=== PATIENT | female | born 1940 | race Caucasian/White ===

== ENCOUNTER → 2016-06-11 | Outpatient (CLI) | payer MEDICARE, BC, OTHER ==
--- NOTE | 2016-06-11 21:41 | CONS ---
DATE OF CONSULTATION: 06/11/2016 CONSULTATION/NEW PATIENT EVALUATION HISTORY OF PRESENT ILLNESS/SLEEP-WAKE EVALUATION: 76-year-old lady who has been evaluated in the sleep center for possible obstructive sleep apnea-hypopnea syndrome. SLEEP SCHEDULE: Patient usual sleep schedule is from 8:30 p.m. to 10:30 a.m. FALLING ASLEEP: Sometimes she has problem with falling asleep, has TV set in bedroom. DURING SLEEP: Sleeps in bed. Sometimes wakes up with nocturia. DURING THE DAY/WAKE STATE: No complaints of excessive daytime sleepiness. [place] Past medical history positive for respiratory failure, bipolar disorder, Alzheimer's disease, kidney problem, CHF, polyarthritis. History of cerebral infarction. MEDICATIONS: 1. Lasix. 2. Lexapro. 3. Multivitamins. 4. Mylanta. 5. [place]. 6. Prilosec. 7. Amlodipine. 8. Aspirin. 9. Atrovent inhaler. 10. Budesonide. 11. ( ). 12. ( ). 13. Colace. 14. Coumadin. 15. Duoneb. 16. Eucerine cream. 17. Patient is on 24 hours oxygen supplement for respiratory failure. PAST SURGICAL HISTORY: Tonsillectomy, D&C. SOCIAL HISTORY: Negative for smoking or using alcohol. FAMILY HISTORY: The patient did not indicate. REVIEW OF SYSTEMS: Swelling of the legs, difficulties to walk. No fevers. No double vision. No recent chest pain. No shortness of breath. No abdominal pain. No bleeding episodes. No blood in urine. No seizure episodes. PHYSICAL EXAMINATION: GENERAL: During physical exam, a pleasant 76-year-old lady on wheelchair without any distress. VITAL SIGNS: BP 132/86, HR 85, RR 16, estimated weight 252.2 pounds, estimated height is 5 feet. Neck is 15-3/4 inches in circumference. Temperature 96.5. Oxygen saturation at room air 93%. HEENT: PERRLA, EOMI evaluation of oropharynx showed, small oropharyngeal air space, very wide nasal pillow, short distance between soft palate and pharyngeal wall. NECK: Supple. No JVD. Thyroid is not palpable. LUNGS: Clear to percussion and to auscultation. Good air exchange. No wheezing or rhonchi. HEART: S1, S2 regular. No murmurs, gallops or rubs. ABDOMEN: Obese. Soft and nontender. Bowel sounds are present. No organomegaly appreciated. EXTREMITIES: 1+ to 2+ bilateral ankle edema, arms bilateral ulnar deformation of the arms. STAVE JOINTER: Patient is on wheelchair, no clear focal deficits observed. IMPRESSION: 1. Snoring, small oropharyngeal air space awakenings from sleep, obstructive sleep apnea/hypopnea syndrome. 2. Obesity. 3. History of asthma. 4. History of respiratory failure on oxygen supplement 2 liters per minute. 5. Swelling of the legs, congestive heart failure. 6. Hypertension. 7. Bipolar. 8. History of cerebral infarction due to unspecified occlusion of cerebral artery. 9. Ulnar deformity of the arms possible rheumatoid arthritis. 10. History of Alzheimer's dementia. 11. History of kidney problems. PLAN: 1. Polysomnography for evaluation of patient's breathing during sleep. 2. CPAP/BiPAP titration if sleep study confirms obstructive sleep apnea-hypopnea syndrome. 3. Preferable position during sleep on the side. 4. No driving if patient feels any sleepiness. Patient is aware of civil and criminal liability for unsafe driving. 5. I will see patient for follow-up visit to explain results of the testing and following plan. Sincerely, Jason Nayak MD, PhD, FAASM. Diplomat of [place] [employer], Sleep Medicine Board by [place] [employer] [place] [employer] [facility] [place]
== END | disposition home or self-care (01) ==
LOC: SLEEP 14:01
PROVIDERS: ATTEND Internal Medicine
DX: G47.33 Obstructive sleep apnea (adult) (pediatric) (principal); E66.9 Obesity, unspecified; J45.909 Unspecified asthma, uncomplicated; J96.90 Respiratory failure, unspecified, unspecified whether with hypoxia or hypercapnia; Z99.81 Dependence on supplemental oxygen; I50.9 Heart failure, unspecified; I10 Essential (primary) hypertension; F31.9 Bipolar disorder, unspecified; Z86.73 Personal history of transient ischemic attack (TIA), and cerebral infarction without residual deficits; M21.932 Unspecified acquired deformity of left forearm; M21.931 Unspecified acquired deformity of right forearm; G30.9 Alzheimer's disease, unspecified; F02.80 Dementia in other diseases classified elsewhere, unspecified severity, without behavioral disturbance, psychotic disturbance, mood disturbance, and anxiety; Z79.01 Long term (current) use of anticoagulants; Z79.899 Other long term (current) drug therapy
CPT/HCPCS: 99211

== ENCOUNTER 2016-07-10 13:20 | Inpatient (IN) | payer MEDICARE, BC, OTHER ==
[2016-07-10] MEDS ORDERED: methylPREDNISolone SOD SUCCI 125 MG/2 ML VIAL IV STA (13:56)
[2016-07-10] MEDS ORDERED: IPRATROPIUM-ALBUTEROL 3 ML NEB INHALATION STA (13:56)
--- NOTE | 2016-07-10 14:01 | ED ---
General Adult HPI - General Chief complaint: Shortness of Breath Stated complaint: CÉSAR Time Seen by Provider: 07/10/16 13:22 Source: patient, EMS, RN notes reviewed Mode of arrival: EMS Limitations: altered mental status, physical limitation - History of Present Illness Initial comments: Patient is a pleasant 76-year-old female presenting to the emergency department with difficulty in breathing. Patient is a poor historian and offers very little information. EMS reports patient is DO NOT RESUSCITATE. Patient poorly has a history of COPD and CHF. Patient admits to dyspnea. Patient has no other complaints. - Related Data Home Medications Medication Instructions Recorded Confirmed Acetaminophen Tab [Tylenol] 650 mg PO Q8H PRN 06/15/15 07/10/16 Artificial Tears-Hypromellose 2 drops BOTH EYES Q6H 06/15/15 07/10/16 [Artificial Tear Drops] Docusate [Colace] 100 mg PO DAILY 06/15/15 07/10/16 Fluticasone Nasal [place] [Flonase 2 spr EA NOSTRIL HS 06/15/15 07/10/16 Nasal [place]] Lactulose 20 gm PO DAILY PRN 06/15/15 07/10/16 Magnesium Hydroxide [Milk of 2,400 mg PO DAILY PRN 06/15/15 07/10/16 Magnesia] Montelukast [Singulair] 10 mg PO DAILY 06/15/15 07/10/16 Multivitamins, Thera [Multivitamin 1 tab PO HS 06/15/15 07/10/16 (formulary)] Omeprazole [PriLOSEC] 20 mg PO DAILY 06/15/15 07/10/16 Saline Mist 0.65% Nose [place] 2 spray EA NOSTRIL BID 06/15/15 07/10/16 Aspirin 81 mg PO HS 07/10/16 07/10/16 Cetirizine HCl [Zyrtec] 10 mg PO DAILY 07/10/16 07/10/16 Colloidal Oatmeal [Eucerin Eczema 1 applic TOPICAL HS 07/10/16 07/10/16 Relief] Furosemide [Lasix] 40 mg PO DAILY 07/10/16 07/10/16 Amaya-Tussin Dm 10 ml PO Q6H PRN 07/10/16 07/10/16 Ipratropium [place] 0.06%Nasal 2 spray EA NOSTRIL BID@0700,1600 07/10/16 [Atrovent Nasal 0.06%] Nasal Airflow Strips [Breathe 1 strip TOPICAL DAILY PRN 07/10/16 07/10/16 Right] QUEtiapine [SEROquel] 12.5 mg PO HS 07/10/16 07/10/16 Warfarin Sodium 8 mg PO HS 07/10/16 07/10/16 Previous Rx's Medication Instructions Recorded Budesonide [Pulmicort] 0.5 mg INHALATION RT-BID nebu 06/27/15 Cholestyramine (with Sugar) 4 gm PO BID packet 06/27/15 [Questran Packet] Escitalopram [Lexapro] 20 mg PO DAILY tab 06/27/15 Ipratropium-Albuterol Nebulize 3 ml INHALATION Q4H PRN #0 06/27/15 [Duoneb 0.5 mg-3 mg/3 ml Soln] ampul.neb Ipratropium-Albuterol Nebulize 3 ml INHALATION RT-QID ampul.neb 06/27/15 [Duoneb 0.5 mg-3 mg/3 ml Soln] HYDROcodone/APAP 5-325MG [Una 1 tab PO Q6HR PRN #20 tab 07/20/15 5-325] amLODIPine [Norvasc] 5 mg PO DAILY tab 07/20/15 Allergies Allergy/AdvReac Type Severity Reaction Status Date / Time guaifenesin [From Entex LA] Allergy Unknown Verified 07/10/16 13:35 phenylephrine HCl Allergy Unknown Verified 07/10/16 13:35 [From Entex LA] phenylpropanolamine HCl Allergy Unknown Verified 07/10/16 13:35 [From Entex LA] pseudoephedrine Allergy Unknown Verified 07/10/16 13:35 sertraline HCl [From Zoloft] Allergy Unknown Verified 07/10/16 13:35 sulfamethoxazole Allergy Unknown Verified 07/10/16 13:35 [From Bactrim] trimethoprim [From Bactrim] Allergy Unknown Verified 07/10/16 13:35 Review of Systems ROS Statement: Those systems with pertinent positive or pertinent negative responses have been documented in the HPI. ROS Other: All systems not noted in ROS Statement are negative. Limitations: ROS unobtainable due to patients medical condition Respiratory: Reports: dyspnea Past Medical History Past Medical History: Asthma, Coronary Artery Disease (CAD), Heart Failure, CVA/ TIA, Dementia, Neurologic Disorder Additional Past Medical History / Comment(s): 4L home O2, alzheimers History of Any Multi-Drug Resistant Organisms: MRSA Date of last positivie culture/infection: 06/17/2015 MDRO Source:: sputum Past Surgical History: Appendectomy, Cholecystectomy, Hysterectomy Past Anesthesia/Blood Transfusion Reactions: No Reported Reaction Past Psychological History: Bipolar, Depression Additional Psychological History / Comment(s): Resides at extended care. Lifelong nonsmoker. Denies alcohol use. No travel history. No experience. Smoking Status: Never smoker Past Alcohol Use History: None Reported Past Drug Use History: None Reported General Exam Limitations: altered mental status, physical limitation General appearance: alert, in distress Head exam: Present: atraumatic Eye exam: Present: normal appearance, PERRL ENT exam: Present: normal oropharynx Neck exam: Present: normal inspection Respiratory exam: Present: respiratory distress, wheezes, decreased breath sounds Cardiovascular Exam: Present: regular rate, normal rhythm GI/Abdominal exam: Present: soft. Absent: tenderness Extremities exam: Present: normal inspection Neurological exam: Present: alert Psychiatric exam: Present: normal affect, normal mood Skin exam: Absent: rash Course Vital Signs 07/10/16 07/10/16 07/10/16 13:26 13:47 14:09 Temperature 98.0 F Pulse Rate 102 H 98 98 Respiratory 26 H 26 H 26 H Rate Blood Pressure 114/77 121/63 132/60 O2 Sat by Pulse 76 L 76 L 76 L Oximetry 07/10/16 07/10/16 07/10/16 14:37 14:38 14:50 Temperature Pulse Rate 94 94 93 Respiratory 24 Rate Blood Pressure 128/60 O2 Sat by Pulse 78 L Oximetry 07/10/16 07/10/16 15:00 15:45 Temperature Pulse Rate 92 93 Respiratory 24 22 Rate Blood Pressure 122/58 138/68 O2 Sat by Pulse 94 L 81 L Oximetry - Reevaluation(s) Reevaluation #1: 07/10/16 14:00 Patient does have DO NOT RESUSCITATE paperwork with multiple signatures including her physician Dr. Valdes EKG Findings - EKG Comments: EKG Findings:: Normal sinus rhythm 100. MN 190. QRS 160. QT 386. QTc 497. Left axis. Right bundle branch block. Lateral T wave inversion. Medical Decision Making - Medical Decision Making Patient reexamined and somewhat improved since presentation. Patient updated. Case discussed with Dr. Billings, who will admit for Dr. Valdes. Attempt will be made with BiPAP. - Lab Data Result diagrams: 07/10/16 15:17 07/10/16 15:17 Lab Results 07/10/16 07/10/16 07/10/16 Range/Units 15:17 15:17 15:17 WBC 9.2 (3.8-10.6) k/uL RBC 4.85 (3.80-5.40) m/uL Hgb 13.6 (11.4-16.0) gm/dL Hct 45.0 (34.0-46.0) % MCV 92.7 (80.0-100.0) fL MCH 28.0 (25.0-35.0) pg MCHC 30.3 L (31.0-37.0) g/dL RDW 14.9 (11.5-15.5) % Plt Count 90 L (150-450) k/uL Neutrophils % 89 % Lymphocytes % 6 % Monocytes % 3 % Eosinophils % 0 % Basophils % 0 % Neutrophils # 8.2 H (1.3-7.7) k/uL Lymphocytes # 0.6 L (1.0-4.8) k/uL Monocytes # 0.3 (0-1.0) k/uL Eosinophils # 0.0 (0-0.7) k/uL Basophils # 0.0 (0-0.2) k/uL Hypochromasia Marked PT 19.8 H (9.0-12.0) sec INR 2.1 (<1.1) APTT 25.1 (22.0-30.0) sec Sodium 141 (137-145) mmol/L Potassium 4.7 (3.5-5.1) mmol/L Chloride 101 (98-107) mmol/L Carbon Dioxide 28 (22-30) mmol/L Anion Gap 12 mmol/L BUN 22 H (7-17) mg/dL Creatinine 0.60 (0.52-1.04) mg/dL Est GFR (MDRD) Af Amer >60 (>60 ml/min/1.73 sqM) Est GFR (MDRD) Non-Af >60 (>60 ml/min/1.73 sqM) Glucose 117 H (74-99) mg/dL Calcium 8.5 (8.4-10.2) mg/dL Total Bilirubin 0.8 (0.2-1.3) mg/dL AST 60 H (14-36) U/L ALT 31 (9-52) U/L Alkaline Phosphatase 39 (38-126) U/L NT-Pro-B Natriuret Pep pg/mL Total Protein 7.1 (6.3-8.2) g/dL Albumin 3.9 (3.5-5.0) g/dL 07/10/16 Range/Units 15:17 WBC (3.8-10.6) k/uL RBC (3.80-5.40) m/uL Hgb (11.4-16.0) gm/dL Hct (34.0-46.0) % MCV (80.0-100.0) fL MCH (25.0-35.0) pg MCHC (31.0-37.0) g/dL RDW (11.5-15.5) % Plt Count (150-450) k/uL Neutrophils % % Lymphocytes % % Monocytes % % Eosinophils % % Basophils % % Neutrophils # (1.3-7.7) k/uL Lymphocytes # (1.0-4.8) k/uL Monocytes # (0-1.0) k/uL Eosinophils # (0-0.7) k/uL Basophils # (0-0.2) k/uL Hypochromasia PT (9.0-12.0) sec INR (<1.1) APTT (22.0-30.0) sec Sodium (137-145) mmol/L Potassium (3.5-5.1) mmol/L Chloride (98-107) mmol/L Carbon Dioxide (22-30) mmol/L Anion Gap mmol/L BUN (7-17) mg/dL Creatinine (0.52-1.04) mg/dL Est GFR (MDRD) Af Amer (>60 ml/min/1.73 sqM) Est GFR (MDRD) Non-Af (>60 ml/min/1.73 sqM) Glucose (74-99) mg/dL Calcium (8.4-10.2) mg/dL Total Bilirubin (0.2-1.3) mg/dL AST (14-36) U/L ALT (9-52) U/L Alkaline Phosphatase (38-126) U/L NT-Pro-B Natriuret Pep 77983 pg/mL Total Protein (6.3-8.2) g/dL Albumin (3.5-5.0) g/dL - Radiology Data Radiology results: image reviewed (Chest x-ray shows cardiomegaly and large left effusion. By basilar atelectasis versus consolidation.) Critical Care Time Critical Care Time: Yes Total Critical Care Time: 34 Disposition Clinical Impression: Congestive heart failure, Acute respiratory failure, Acute exacerbation of chronic obstructive airways disease Disposition: ADMITTED IP TO THIS HOSP Condition: Serious
--- NOTE | 2016-07-10 14:39 | XR ---
EXAMINATION TYPE: XR chest 1V portable DATE OF EXAM: 07/10/2016 2:07 PM Comparison: 07/20/2015 Clinical History: 76-year-old female with dyspnea Findings: Left heart margin obscured by adjacent pleural-parenchymal disease. There is now a moderate to large left pleural effusion with adjacent opacity. Focal opacity medial right base is also present. Impression: Moderate to large left pleural effusion. Prominent bibasilar areas of atelectasis and/or consolidatio n. Follow-up after treatment to ensure clearance. Suspect underlying pulmonary artery hypertension.
[2016-07-10 15:29] LABS: Basophils % (A) 0 %; CH 27.6; CHCM 29.9; Eosinophils % (A) 0 %; HDW 2.62; HGB 13.6 gm/dL (11.4-16.0); Hypochromasia Marked; Luc % (Auto) 1; Lymphocytes # (A) 0.6 k/uL (1.0-4.8); Lymphocytes % (A) 6 %; MCHC 30.3 g/dL (31.0-37.0); MCV 92.7 fL (80.0-100.0); Mean Platelet Volume 8.4; Monocytes # (A) 0.3 k/uL (0-1.0); Monocytes % (A) 3 %; Neutrophils # (A) 8.2 k/uL (1.3-7.7); Neutrophils % (A) 89 %; RBC 4.85 m/uL (3.80-5.40); RDW 14.9 % (11.5-15.5); WBC 9.2 k/uL (3.8-10.6); WBC (Perox) 8.56
[2016-07-10 15:37] LABS: INR 2.1 (<1.1); Partial Thromboplastin Time 25.1 sec (22.0-30.0); Prothrombin Time 19.8 sec (9.0-12.0)
[2016-07-10 15:40] LABS: ALT 31 U/L (9-52); AST 60 U/L (14-36); Alkaline Phosphatase 39 U/L (38-126); Anion Gap 12 mmol/L; Blood Urea Nitrogen 22 mg/dL (7-17); Calcium 8.5 mg/dL (8.4-10.2); Carbon Dioxide 28 mmol/L (22-30); Chloride 101 mmol/L (98-107); Glucose 117 mg/dL (74-99); Non-African American GFR(MDRD) >60 (>60 ml/min/1.73 sqM); Potassium 4.7 mmol/L (3.5-5.1); Sodium 141 mmol/L (137-145); Total Bilirubin 0.8 mg/dL (0.2-1.3); Total Protein 7.1 g/dL (6.3-8.2)
[2016-07-10] MEDS ORDERED: ASPIRIN 325 MG TAB PO STA (15:57)
[2016-07-10] MEDS ORDERED: IPRATROPIUM-ALBUTEROL 3 ML NEB INHALATION PRN (16:03)
[2016-07-10 16:04] LABS: Creatine Kinase MB 2.7 ng/mL (0.0-2.4)
[2016-07-10 16:37] LABS: Troponin I 0.352 ng/mL (0.000-0.034)
[2016-07-10] MEDS: FUROSEMIDE 10 MG/ML 4 ML VIAL IV SCH ×2 (16:47→23:27)
[2016-07-10] MEDS ORDERED: FUROSEMIDE 10 MG/ML 4 ML VIAL IV SCH ×2 (17:00)
[2016-07-10] MEDS: IPRATROPIUM-ALBUTEROL 3 ML NEB INHALATION SCH (19:30)
[2016-07-10] MEDS ORDERED: ALPRAZolam 0.25 MG TAB PO PRN (19:56)
[2016-07-10] MEDS ORDERED: LACTULOSE 20 GM/30 ML CUP PO PRN (19:57)
[2016-07-10] MEDS ORDERED: ACETAMINOPHEN TAB 325 MG TAB PO PRN (19:57)
[2016-07-10] MEDS ORDERED: HYDROcodone/APAP 5-325MG 1 EACH TAB PO PRN (19:57)
[2016-07-10] MEDS ORDERED: MAGNESIUM HYDROXIDE 2,400 MG/10 ML CUP PO PRN (19:57)
[2016-07-10] MEDS: NITROGLYCERIN OINT 1 INCH/GM PACKET TOPICAL SCH ×2 (20:19→23:24)
[2016-07-10] MEDS: LEVOFLOXACIN 500MG-D5W PMX 500 MG in DEXTROSE/WATER 1 100ML.BAG IVPB SCH (20:24)
[2016-07-10 20:28] LABS: Glucose,Whole Blood 128 mg/dL (75-99)
[2016-07-10] MEDS ORDERED: WARFARIN 2 MG TAB PO SCH (21:00)
[2016-07-10] MEDS: INSULIN LISPRO (humaLOG) 300 UNIT/3 ML VIAL SQ SCH (21:34)
[2016-07-10] MEDS: ARTIFICIAL TEARS-HYPROMELLOSE DROPS 15 ML BTL BOTH EYES SCH (21:39)
[2016-07-10] MEDS: MULTIVITAMINS, THERA 1 EACH TAB PO SCH (21:39)
[2016-07-10] MEDS: FLUTICASONE 50MCG/SPRAY NASAL 16GM EA NOSTRIL SCH (21:39)
[2016-07-10] MEDS: SODIUM CHLORIDE 0.65% NASAL SPRAY 44 ML BTL NASAL SCH (21:39)
[2016-07-10] MEDS: QUEtiapine 25 MG TAB PO SCH (21:40)
[2016-07-10] MEDS: methylPREDNISolone SOD SUCCI 125 MG/2 ML VIAL IV SCH (23:28)
[2016-07-11] MEDS: ARTIFICIAL TEARS-HYPROMELLOSE DROPS 15 ML BTL BOTH EYES SCH ×4 (02:48→21:12)
[2016-07-11 05:52] LABS: Glucose,Whole Blood 125 mg/dL (75-99)
[2016-07-11] MEDS: INSULIN LISPRO (humaLOG) 300 UNIT/3 ML VIAL SQ SCH ×4 (06:03→22:43)
[2016-07-11] MEDS: methylPREDNISolone SOD SUCCI 125 MG/2 ML VIAL IV SCH ×4 (06:04→23:44)
[2016-07-11 06:29] LABS: Basophils % (A) 0 %; CH 27.3; CHCM 30.3; Eosinophils % (A) 0 %; HCT 42.1 % (34.0-46.0); HGB 13.3 gm/dL (11.4-16.0); Hypochromasia Moderate; Luc # (Auto) 0.07; Luc % (Auto) 1; Lymphocytes # (A) 0.5 k/uL (1.0-4.8); Lymphocytes % (A) 6 %; MCH 28.7 pg (25.0-35.0); MCHC 31.6 g/dL (31.0-37.0); MCV 90.6 fL (80.0-100.0); Mean Platelet Volume 7.3; Monocytes # (A) 0.3 k/uL (0-1.0); Monocytes % (A) 3 %; Neutrophils # (A) 7.9 k/uL (1.3-7.7); Neutrophils % (A) 90 %; RBC 4.65 m/uL (3.80-5.40); RDW 14.4 % (11.5-15.5); WBC 8.8 k/uL (3.8-10.6)
[2016-07-11 06:37] LABS: INR 3.1 (<1.1); Prothrombin Time 30.5 sec (9.0-12.0)
[2016-07-11 06:43] LABS: Anion Gap 6 mmol/L; Calcium 8.2 mg/dL (8.4-10.2); Carbon Dioxide 33 mmol/L (22-30); Chloride 101 mmol/L (98-107); Glucose 128 mg/dL (74-99); Non-African American GFR(MDRD) >60 (>60 ml/min/1.73 sqM); Sodium 140 mmol/L (137-145)
[2016-07-11 06:57] LABS: Blood Urea Nitrogen 22 mg/dL (7-17); Potassium 4.3 mmol/L (3.5-5.1)
--- NOTE | 2016-07-11 08:14 | HP ---
DATE OF ADMISSION: 07/10/2016 CHIEF COMPLAINT: Shortness of breath. HISTORY OF PRESENT ILLNESS: This 76-year-old woman with past medical history of asthma, CAD, history of congestive heart failure, history of CVA, dementia, history of ovarian cancer, history of chronic respiratory failure, history of methicillin-resistant Staphylococcus aureus, adenoidectomy, history of depression, being followed by Dr. Valdes in the outpatient setting was recently admitted to [facility]. The patient apparently had significant shortness of breath and some change in mental status in the ECF and oxygen about 50%. The patient was taken to [facility] and admitted for further evaluation and treatment. Chest x-ray showed possibly combination of pneumonia versus congestive heart failure and admitted for further evaluation and treatment. The patient was severely hypoxic. The patient had a BiPAP at 25/10 at this time. A pulmonary consultation with Dr. Alejo is under way at this time. Cardiology also consulted. Patient is unable to give a coherent history because of change in mental status. Most of the history taken from my discussion with ER physician and as well as staff and as well as review of the chart. Most recent ejection fraction was 50 to 55%. No history of trauma. PAST MEDICAL HISTORY: History of congestive heart failure, history of asthma, history of CVA, TIA, history of dementia, history of chronic respiratory failure and depression. Medications prior to admission include: 1. Lexapro 20 mg p.o. daily. 2. Artificial tears, two drops q.6h. p.r.n. 3. Magnesium oxide 2.4 grams p.o. daily p.r.n. 4. [place] 5 mg q6h p.r.n. 5. Tylenol 650 q.6 p.r.n. 6. Lactulose 20 mg p.o. daily p.r.n. 8. DuoNeb q.i.d. and q.4 p.r.n. 9. Saline mist. 10. Questran 4 grams p.o. b.i.d. 11. Pulmicort 0.5 b.i.d. 12. Singulair 10 mg daily. 13. Seroquel 2.5 mg q6h. 14. Prilosec 20 mg daily. 15. Multivitamin 1 p.o. daily. 16. Lasix 40 mg p.o. daily. 17. Flonase 2 sprays q.h.s. 19. Coumadin 8 mg p.o. q.h.s. 20. Colace 100 mg p.o. daily. 22. Norvasc 5 mg p.o. daily. 23. Aspirin 81 mg q.h.s. ALLERGIES ARE: GUAIFENESIN, ENTEX LA, ZOLOFT AND BACTRIM. FAMILY HISTORY, SOCIAL HISTORY AND REVIEW OF SYSTEMS could not be taken because of change in mental status. Per chart, no history of smoking. PHYSICAL EXAMINATION: Patient is stuporous, on BiPAP. BIPAP settings are noted. Pulse is 92, blood pressure 126/70, respiratory rate 22, temperature 97.9. Pulse ox 98% on BiPAP. On admission to 76% on nonrebreather 15 liters. HEENT: Conjunctivae normal. Oral mucosa moist. NECK: Obese. CARDIOVASCULAR: S1, S2 muffled. RESPIRATORY: Breath sounds diminished at the bases. Bilateral scattered rhonchi and crackles. Breath sounds diminished at the bases. ABDOMEN: Soft, obese, nontender. LEGS: No edema. No swelling. Nervous system: Higher function as mentioned earlier. Otherwise, careful exam could not be conducted. SKIN: No ulcer, rash or bleeding. LYMPHATICS: No lymph nodes palpable in the neck, axillae or groin. JOINTS: No active deforming arthropathy. LABS: CBC, platelets 90. INR 2.1 and CK-MB is 2.7. Troponin 0.352, NT-proBNP 29,500. Chest x-ray personally reviewed by me showed congestive heart failure and possible pneumonia. EKG shows normal sinus rhythm as well as right bundle branch block and left axis deviation. ASSESSMENT: 1. Congestive heart failure, acute exacerbation, with acute on chronic diastolic dysfunction, ejection 50 to 55% with acute hypoxic respiratory failure on BiPAP. 2. Rule out pneumonia. 3. Thrombocytopenia. 4. Troponin 0.352, indeterminate. 5. Morbid obesity, body mass index of 48.3. 6. History of asthma. 7. History of coronary artery disease. 8. History of congestive heart failure. 9. History of cerebrovascular accident, transient ischemic attack. 10. History of dementia. 11. History of chronic respiratory failure on home O2 4 liters. 12. History of ovarian cancer. 13. History of Methicillin-resistant Staph aureus. 14. History of appendectomy, cholecystectomy. 15. History of depression, not otherwise specified. 16. History of pulmonary embolism. 17. 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 18. History of bipolar depression not otherwise specified. 19. NO CODE, NO CPR, NO VENTILATOR. RECOMMENDATIONS AND DISCUSSION: In this 76 -year-old woman who presented with multiple complex medical issues, we will monitor the patient closely, continue the current medications, continue symptomatic treatment. Intravenous status will be initiated. Monitor fluid and electrolytes balance closely. Empiric antibiotics, bronchodilators, also will be added along with steroids. Prognosis guarded because of multiple complex medical issues. Home medications will be continued and we will consult Dr. Alejo and as well as cardiology team. Please the patient is NO CODE, NO CPR, AND NO VENT. Once again, the prognosis is extremely guarded. Currently the sats are holding on but we will continue to monitor. Once again, the prognosis is guarded. We will monitor closely. See orders for details. MTDD
--- NOTE | 2016-07-11 09:19 | P.CRDCN ---
History of Present Illness Consult date: 07/11/16 Reason for Consult (text): CHF Chief complaint: Dyspnea History of present illness: This is a 76-year-old female patient who is currently on a BiPAP, has a history of asthma, CAD, systolic heart failure, CVA, Alzheimer's dementia, on home O2, history of being a smoker, and June 2015 and is on Coumadin. She sides and in extended care facility. Due to patient's Alzheimer's and being on a BiPAP limited review of systems was obtained and HPI was gathered from the medical record. According to the records, patient had been experiencing increased shortness of breath for a couple days and a chest x-ray was done that showed mild CHF with small pleural effusions. Apparently yesterday, patient developed severe difficulty breathing, was tachypneic with labored respirations and EMS was called. Patient was found to have peripheral cyanosis and a low oxygen saturation. The patient was placed on a BiPAP and started on Lasix 40 mg IV push every 8 hours. According to the weights documented in the chart the patient is found to have kilograms suggested a period patient's BNP was 29,500, BUN 22, creatinine 0.5 and troponin was elevated at 0.352. The patient is able to verbalize that she is breathing better this morning. INR this morning was 3.1 patient is usually on Coumadin 8 mg by mouth daily at bedtime. Past Medical History Past Medical History: Asthma, Coronary Artery Disease (CAD), Cancer, Heart Failure, CVA/TIA, Dementia, Neurologic Disorder Additional Past Medical History / Comment(s): 4L home O2, ovarian ca. History of Any Multi-Drug Resistant Organisms: MRSA Date of last positivie culture/infection: 06/17/2015 MDRO Source:: sputum Past Surgical History: Appendectomy, Cholecystectomy, Hysterectomy Past Anesthesia/Blood Transfusion Reactions: No Reported Reaction Past Psychological History: No Psychological Hx Reported, Depression Additional Psychological History / Comment(s): Resides at extended care. Lifelong nonsmoker. Denies alcohol use. No travel history. No experience. Smoking Status: Never smoker Past Alcohol Use History: None Reported Past Drug Use History: None Reported - Past Family History Mother Family Medical History: Coronary Artery Disease (CAD) Father Family Medical History: Coronary Artery Disease (CAD) Medications and Allergies Home Medications Medication Instructions Recorded Confirmed Type Acetaminophen Tab [Tylenol] 650 mg PO Q8H PRN 06/15/15 07/10/16 History Artificial Tears-Hypromellose 2 drops BOTH EYES Q6H 06/15/15 07/10/16 History [Artificial Tear Drops] Docusate [Colace] 100 mg PO DAILY 06/15/15 07/10/16 History Fluticasone Nasal [place] [Flonase 2 spr EA NOSTRIL HS 06/15/15 07/10/16 History Nasal [place]] Lactulose 20 gm PO DAILY PRN 06/15/15 07/10/16 History Magnesium Hydroxide [Milk of 2,400 mg PO DAILY PRN 06/15/15 07/10/16 History Magnesia] Montelukast [Singulair] 10 mg PO DAILY 06/15/15 07/10/16 History Multivitamins, Thera [Multivitamin 1 tab PO HS 06/15/15 07/10/16 History (formulary)] Omeprazole [PriLOSEC] 20 mg PO DAILY 06/15/15 07/10/16 History Saline Mist 0.65% Nose [place] 2 spray EA NOSTRIL BID 06/15/15 07/10/16 History Aspirin 81 mg PO HS 07/10/16 07/10/16 History Cetirizine HCl [Zyrtec] 10 mg PO DAILY 07/10/16 07/10/16 History Colloidal Oatmeal [Eucerin Eczema 1 applic TOPICAL HS 07/10/16 07/10/16 History Relief] Furosemide [Lasix] 40 mg PO DAILY 07/10/16 07/10/16 History Amaya-Tussin Dm 10 ml PO Q6H PRN 07/10/16 07/10/16 History Ipratropium [place] 0.06%Nasal 2 spray EA NOSTRIL BID@0700,1600 07/10/16 History [Atrovent Nasal 0.06%] Nasal Airflow Strips [Breathe 1 strip TOPICAL DAILY PRN 07/10/16 07/10/16 History Right] QUEtiapine [SEROquel] 12.5 mg PO HS 07/10/16 07/10/16 History Warfarin Sodium 8 mg PO HS 07/10/16 07/10/16 History Allergies Allergy/AdvReac Type Severity Reaction Status Date / Time guaifenesin [From Entex [place]] Allergy Unknown Verified 07/10/16 13:35 phenylephrine HCl Allergy Unknown Verified 07/10/16 13:35 [From Entex LA] phenylpropanolamine HCl Allergy Unknown Verified 07/10/16 13:35 [From Entex LA] pseudoephedrine Allergy Unknown Verified 07/10/16 13:35 sertraline HCl [From Zoloft] Allergy Unknown Verified 07/10/16 13:35 sulfamethoxazole Allergy Unknown Verified 07/10/16 13:35 [From Bactrim] trimethoprim [From Bactrim] Allergy Unknown Verified 07/10/16 13:35 Physical Exam Vitals: Vital Signs Temp Pulse Pulse Resp BP BP Pulse Ox 07/11/16 03:15 97 F L 80 17 103/59 95 07/11/16 00:00 97 F L 79 18 94/55 93 L 07/10/16 20:02 99 F 86 20 95/54 07/10/16 19:45 94 07/10/16 19:30 94 07/10/16 18:18 29 H 07/10/16 17:14 92 22 122/67 92 L 07/10/16 16:50 97.9 F 90 22 137/75 93 L 07/10/16 16:46 96.9 F L 89 29 H 108/68 07/10/16 16:37 93 L 07/10/16 16:28 90 20 146/74 92 L Intake and Output 07/10/16 07/11/16 07/11/16 22:59 06:59 14:59 Intake Total 10 400 Output Total 1100 Balance 10 -700 Intake: IV 10 Iv flush 10 Oral 0 400 Output: Urine 1100 Other: Voiding Method Incontinent Incontinent # Voids 2 Weight 116.02 kg 113.5 kg PHYSICAL EXAMINATION: HEENT: Head is atraumatic, normocephalic. Pupils equal, round. Neck is supple. There is elevated jugular venous pressure. HEART EXAMINATION: Heart sounds regular, S1 and S2 normal. No murmur or gallop heard. CHEST EXAMINATION: Lungs michael coarse lung sounds with crackles bilaterally and diminished air entry to the bilateral lower lobes. No chest wall tenderness is noted on palpation or with deep breathing. ABDOMEN: Soft, obese, nontender. Bowel sounds are heard. No organomegaly noted. EXTREMITIES: 2+ peripheral pulses with no evidence of peripheral edema and no calf tenderness noted. NEUROLOGIC patient is drowsy, responsive to verbal and tactile stimuli, confused. . Results 07/11/16 06:17 07/11/16 06:17 Coagulation 07/11/16 Range/Units 06:17 PT 30.5 H (9.0-12.0) sec CBC 07/11/16 Range/Units 06:17 WBC 8.8 (3.8-10.6) k/uL RBC 4.65 (3.80-5.40) m/uL Hgb 13.3 (11.4-16.0) gm/dL Hct 42.1 (34.0-46.0) % Plt Count 104 L (150-450) k/uL Comprehensive Metabolic Panel 07/11/16 Range/Units 06:17 Sodium 140 (137-145) mmol/L Potassium 4.3 (3.5-5.1) mmol/L Chloride 101 (98-107) mmol/L Carbon Dioxide 33 H (22-30) mmol/L BUN 22 H (7-17) mg/dL Creatinine 0.50 L (0.52-1.04) mg/dL Glucose 128 H (74-99) mg/dL Calcium 8.2 L (8.4-10.2) mg/dL Current Medications Generic Name Dose Route Start Last Admin Trade Name Freq PRN Reason Stop Dose Admin Acetaminophen 650 mg 07/10/16 19:57 Tylenol Tab PO Q8H PRN Mild Pain Hydrocodone Bitart/Acetaminophen 1 each 07/10/16 19:57 [place] 5-325 PO Q6HR PRN Moderate Pain Albuterol/Ipratropium 3 ml 07/10/16 20:00 07/10/16 19:30 Duoneb 0.5 Mg-3 Mg/3 Ml Soln INHALATION 3 ml RT-QID LOLITA Administration Albuterol/Ipratropium 3 ml 07/10/16 16:03 Duoneb 0.5 Mg-3 Mg/3 Ml Soln INHALATION RT-Q4H PRN Shortness Of Breath Or Wheezing Alprazolam 0.25 mg 07/10/16 19:56 Xanax PO TID PRN Anxiety Amlodipine Besylate 5 mg 07/11/16 09:00 Norvasc PO DAILY LOLITA Artificial Tears 2 drops 07/10/16 20:00 07/11/16 02:48 Artificial Tear Drops BOTH EYES Not Given Q6H LOLITA Aspirin 325 mg 07/11/16 09:00 Aspirin PO DAILY [facility] Budesonide 1 mg 07/10/16 20:00 Pulmicort INHALATION RT-BID [facility] Docusate Sodium 100 mg 07/11/16 09:00 Colace PO DAILY [facility] Escitalopram Oxalate 20 mg 07/11/16 09:00 Lexapro PO DAILY [facility] Fluticasone Propionate 2 spray 07/10/16 21:00 07/10/16 21:39 Flonase Nasal [place] EA NOSTRIL 2 spray HS [facility] Administration Formoterol Fumarate 20 mcg 07/10/16 20:00 Perforomist INHALATION RT-BID [facility] Furosemide 40 mg 07/10/16 17:00 07/10/16 23:27 Lasix IV 40 mg Q8HR [facility] Administration Levofloxacin 500 mg/ IV 100 mls @ 100 mls/hr 07/10/16 20:00 07/10/16 20:24 Solution IVPB 100 mls/hr Q24H [facility] Administration Insulin Human Lispro 0 unit 07/10/16 21:00 07/11/16 06:03 Humalog SQ Not Given ACHS [facility] Protocol Lactulose 20 gm 07/10/16 19:57 Cephulac PO DAILY PRN Constipation Magnesium Hydroxide 2,400 mg 07/10/16 19:57 Milk Of Magnesia PO DAILY PRN Constipation Methylprednisolone Sodium Succinate 60 mg 07/11/16 00:00 07/11/16 06:04 Solu-Medrol IV 60 mg Q6HR [facility] Administration Montelukast Sodium 10 mg 07/11/16 09:00 Singulair PO DAILY [facility] Multivitamins 1 each 07/10/16 21:00 07/10/16 21:39 Theragran PO 1 each HS [facility] Administration Nitroglycerin 1 inch 07/10/16 18:00 07/10/16 23:24 Nitro-Bid Oint TOPICAL Not Given QID [facility] Pantoprazole Sodium 40 mg 07/11/16 09:00 Protonix IVP DAILY [facility] Quetiapine Fumarate 12.5 mg 07/10/16 21:00 07/10/16 21:40 Seroquel PO 12.5 mg HS [facility] Administration Sodium Chloride 10 ml 07/10/16 21:00 07/10/16 21:40 Saline Flush IV 10 ml BID [facility] Administration Sodium Chloride 2 spray 07/10/16 21:00 07/10/16 21:39 [place] NASAL 2 spray BID LOLITA Administration Warfarin Sodium 8 mg 07/10/16 21:00 07/10/16 21:39 Coumadin PO 8 mg HS LOL[facility] Administration Intake and Output 07/10/16 07/11/16 07/11/16 22:59 06:59 14:59 Intake Total 10 400 Output Total 1100 Balance 10 -700 Intake: IV 10 Iv flush 10 Oral 0 400 Output: Urine 1100 Other: Voiding Method Incontinent Incontinent # Voids 2 Weight 116.02 kg 113.5 kg 07/11/16 06:17 07/11/16 06:17 EKG Interpretations (text) Sinus rhythm with right bundle branch block Assessment and Plan Plan: Assessment and plan #1 acute on chronic systolic congestive heart failure #2 moderate to large left pleural effusion #3 bibasilar atelectasis and/or consolidation per chest x-ray #4 Alzheimer's dementia #5 history of pulmonary emboli #6 elevated troponin From cardiology's perspective, elevation in troponin is likely related to oxygen supply demand mismatch. We will obtain a 2-D echo to reassess LV function. The patient is a DO NOT RESUSCITATE. We will continue medical management. Continue Lasix 40 mg IV push every 8 hours. No Coumadin today reassess INR in the morning. Further recommendations to follow. TRENCHER DRIVER note has been reviewed, I agree with a documented findings and plan of care. Patient was seen and examined.
[2016-07-11] MEDS: FORMOTEROL FUMARATE 20 MCG/2 ML NEBU INHALATION SCH ×3 (09:28→20:45)
[2016-07-11] MEDS: IPRATROPIUM-ALBUTEROL 3 ML NEB INHALATION SCH ×5 (09:28→22:35)
[2016-07-11] MEDS: BUDESONIDE 1 MG/2 ML NEBU INHALATION SCH ×2 (09:28→20:45)
[2016-07-11] MEDS: amLODIPine 5 MG TAB PO SCH (09:52)
[2016-07-11] MEDS: ASPIRIN 325 MG TAB PO SCH (09:52)
[2016-07-11] MEDS: PANTOPRAZOLE 40 MG/10 ML VIAL IVP SCH (09:52)
[2016-07-11] MEDS: DOCUSATE 100 MG CAP PO SCH (09:52)
[2016-07-11] MEDS: ESCITALOPRAM 20 MG TAB PO SCH (09:52)
[2016-07-11] MEDS: MONTELUKAST 10 MG TAB PO SCH (09:52)
[2016-07-11] MEDS: NITROGLYCERIN OINT 1 INCH/GM PACKET TOPICAL SCH ×4 (09:52→21:13)
[2016-07-11 09:54] LABS: Hemoglobin A1C 5.3 % (4.2-6.1)
[2016-07-11] MEDS: SODIUM CHLORIDE 0.65% NASAL SPRAY 44 ML BTL NASAL SCH ×2 (09:54→21:11)
[2016-07-11] MEDS: FUROSEMIDE 10 MG/ML 4 ML VIAL IV SCH ×3 (09:55→23:44)
[2016-07-11 11:41] LABS: Glucose,Whole Blood 160 mg/dL (75-99)
--- NOTE | 2016-07-11 11:42 | ECHOF ---
Referral Reason:CHF MEASUREMENTS -------- HEIGHT: 154.9 cm WEIGHT: 113.4 kg BP: 119/67 RVIDd: 3.6 cm (< 3.3) IVSd: 1.3 cm (0.6 - 1.1) LVIDd: 5.3 cm (3.9 - 5.3) LVPWd: 1.3 cm (0.6 - 1.1) IVSs: 2.0 cm LVIDs: 3.7 cm LVPWs: 1.7 cm LA Diam: 4.2 cm (2.7 - 3.8) LAESV Index (A-L): 26.41 ml/m Ao Diam: 4.0 cm (2.0 - 3.7) AV Cusp: 2.1 cm (1.5 - 2.6) MV EXCURSION: 19.783 mm (> 18.000) MV EF SLOPE: 73 mm/s (70 - 150) EPSS: 1.6 cm MV E Rickie: 1.00 m/s MV DecT: 127 ms MV A Rickie: 0.31 m/s MV E/A Ratio: 3.20 AV maxP.78 mmHg AV maxP.78 mmHg AV meanP.42 mmHg RAP: 15.00 mmHg RVSP: 51.49 mmHg FINDINGS -------- Sinus rhythm. This was a technically adequate study. The left ventricular size is normal. There is mild concentric left ventricular hypertrophy. Overall left ventricular systolic function is severely impaired with, an EF between 20 - 25 %. Basal inferior LV wall motion is hypokinetic. Basal inferoseptal LV wall motion is hypokinetic. The right ventricle is mildly enlarged. The left atrium is mildly dilated. The right atrium is normal in size. There is mild to moderate aortic valve sclerosis. There is mild aortic regurgitation. There is mild aortic stenosis present. The mitral valve leaflets are mildly thickened. Mild mitral annular calcification present. Mild mitral regurgitation is present. No regurgitation noted There is moderate pulmonary hypertension. The right ventricular systolic pressure, as measured by Doppler, is 51.49mmHg. Moderate pulmonic regurgitation. The aortic root is dilated measuring 4.0cm. Normal inferior vena cava with less than 50% inspiratory collapse consistent with estimated right atrial pressure of 15 mmHg. There is a small pericardial effusion located near the left ventricle. CONCLUSIONS -------- 1. Sinus rhythm. 2. The right atrium is normal in size. 3. There is mild to moderate aortic valve sclerosis. 4. There is mild aortic regurgitation. 5. There is mild aortic stenosis present. 6. The mitral valve leaflets are mildly thickened. 7. Mild mitral annular calcification present. 8. Mild mitral regurgitation is present. 9. No regurgitation noted 10. There is moderate pulmonary hypertension. 11. The right ventricular systolic pressure, as measured by Doppler, is 51.49mmHg. 12. This was a technically adequate study. 13. Moderate pulmonic regurgitation. 14. The aortic root is dilated measuring 4.0cm. 15. Normal inferior vena cava with less than 50% inspiratory collapse consistent with estimated right atrial pressure of 15 mmHg. 16. There is a small pericardial effusion located near the left ventricle. 17. The left ventricular size is normal. 18. There is mild concentric left ventricular hypertrophy. 19. Overall left ventricular systolic function is severely impaired with, an EF between 20 - 25 %. 20. Basal inferior LV wall motion is hypokinetic. 21. Basal inferoseptal LV wall motion is hypokinetic. 22. The right ventricle is mildly enlarged. 23. The left atrium is mildly dilated. BOTTOM BLEACHER: Margie Jasmine RDCS
--- NOTE | 2016-07-11 14:21 | P.CNPUL ---
History of Present Illness Consult date: 07/11/16 Requesting physician: Nelson Billings Reason for consult: dyspnea Chief complaint: As of breath, altered mental status History of present illness: This is a 76-year-old female patient who resides in [facility]. She is followed by Dr. Shelley. She has a history of diastolic congestive heart failure, asthma, CVA/TIA, dementia, depression. She was here approximately one year ago for pulmonary embolism and is maintained on warfarin. The patient herself is a poor historian. She presented here from the [facility] by EMS after being found to be quite short of breath and having some altered mental status. Her oxygen saturation at that time is about 50%. Once here she was placed on BiPAP to maintain O2 saturations in the 90s. She is seen today on the selective care unit and consultation. Her chest x-ray does reveal a moderate to large left pleural effusion. ProBNP 29,500. Troponin 0.352. Currently INR 3.1 no leukocytosis. No anemia. She is afebrile. Review of Systems ROS unobtainable: due to mental status Past Medical History Past Medical History: Asthma, Coronary Artery Disease (CAD), Cancer, Heart Failure, CVA/TIA, Dementia, Neurologic Disorder Additional Past Medical History / Comment(s): 4L home O2, ovarian ca. History of Any Multi-Drug Resistant Organisms: MRSA Date of last positivie culture/infection: 06/17/2015 MDRO Source:: sputum Past Surgical History: Appendectomy, Cholecystectomy, Hysterectomy Past Anesthesia/Blood Transfusion Reactions: No Reported Reaction Past Psychological History: No Psychological Hx Reported, Depression Additional Psychological History / Comment(s): Resides at [facility]. Lifelong nonsmoker. Denies alcohol use. No travel history. No experience. Smoking Status: Never smoker Past Alcohol Use History: None Reported Past Drug Use History: None Reported - Past Family History Mother Family Medical History: Coronary Artery Disease (CAD) Father Family Medical History: Coronary Artery Disease (CAD) Medications and Allergies Home Medications Medication Instructions Recorded Confirmed Type Acetaminophen Tab [Tylenol] 650 mg PO Q8H PRN 06/15/15 07/10/16 History Artificial Tears-Hypromellose 2 drops BOTH EYES Q6H 06/15/15 07/10/16 History [Artificial Tear Drops] Docusate [Colace] 100 mg PO DAILY 06/15/15 07/10/16 History Fluticasone Nasal [place] [Flonase 2 spr EA NOSTRIL HS 06/15/15 07/10/16 History Nasal [place]] Lactulose 20 gm PO DAILY PRN 06/15/15 07/10/16 History Magnesium Hydroxide [Milk of 2,400 mg PO DAILY PRN 06/15/15 07/10/16 History Magnesia] Montelukast [Singulair] 10 mg PO DAILY 06/15/15 07/10/16 History Multivitamins, Thera [Multivitamin 1 tab PO HS 06/15/15 07/10/16 History (formulary)] Omeprazole [PriLOSEC] 20 mg PO DAILY 06/15/15 07/10/16 History Saline Mist 0.65% Nose [place] 2 spray EA NOSTRIL BID 06/15/15 07/10/16 History Aspirin 81 mg PO HS 07/10/16 07/10/16 History Cetirizine HCl [Zyrtec] 10 mg PO DAILY 07/10/16 07/10/16 History Colloidal Oatmeal [Eucerin Eczema 1 applic TOPICAL HS 07/10/16 07/10/16 History Relief] Furosemide [Lasix] 40 mg PO DAILY 07/10/16 07/10/16 History Amaya-Tussin Dm 10 ml PO Q6H PRN 07/10/16 07/10/16 History Ipratropium [place] 0.06%Nasal 2 spray EA NOSTRIL BID@0700,1600 07/10/16 History [Atrovent Nasal 0.06%] Nasal Airflow Strips [Breathe 1 strip TOPICAL DAILY PRN 07/10/16 07/10/16 History Right] QUEtiapine [SEROquel] 12.5 mg PO HS 07/10/16 07/10/16 History Warfarin Sodium 8 mg PO HS 07/10/16 07/10/16 History Allergies Allergy/AdvReac Type Severity Reaction Status Date / Time guaifenesin [From Entex LA] Allergy Unknown Verified 07/10/16 13:35 phenylephrine HCl Allergy Unknown Verified 07/10/16 13:35 [From Entex LA] phenylpropanolamine HCl Allergy Unknown Verified 07/10/16 13:35 [From Entex LA] pseudoephedrine Allergy Unknown Verified 07/10/16 13:35 sertraline HCl [From Zoloft] Allergy Unknown Verified 07/10/16 13:35 sulfamethoxazole Allergy Unknown Verified 07/10/16 13:35 [From Bactrim] trimethoprim [From Bactrim] Allergy Unknown Verified 07/10/16 13:35 Physical Exam Vitals: Vital Signs Temp Pulse Pulse Resp BP BP Pulse Ox 07/11/16 12:21 98 07/11/16 12:11 96 07/11/16 11:59 86 20 07/11/16 11:57 97.0 F L 86 20 110/65 93 L 07/11/16 09:50 92 07/11/16 09:40 88 07/11/16 09:39 88 07/11/16 09:29 88 07/11/16 08:00 96.7 F L 82 20 119/67 07/11/16 03:15 97 F L 80 17 103/59 95 07/11/16 00:00 97 F L 79 18 94/55 93 L 07/10/16 20:02 99 F 86 20 95/54 07/10/16 19:45 94 07/10/16 19:30 94 07/10/16 18:18 29 H 07/10/16 17:14 92 22 122/67 92 L 07/10/16 16:50 97.9 F 90 22 137/75 93 L 07/10/16 16:46 96.9 F L 89 29 H 108/68 07/10/16 16:37 93 L 07/10/16 16:28 90 20 146/74 92 L Intake and Output 07/10/16 07/11/16 07/11/16 22:59 06:59 14:59 Intake Total 10 400 Output Total 1100 Balance 10 -700 Intake: IV 10 Iv flush 10 Oral 0 400 Output: Urine 1100 Other: Voiding Method Incontinent Incontinent Incontinent # Voids 2 Weight 116.02 kg 113.5 kg 113.5 kg Patient Weight 07/12/16 06:59 Weight 113.5 kg GENERAL EXAM: On BiPAP, arouses to verbal stimuli. HEAD: Normocephalic. EYES: Normal reaction of pupils, equal size. NOSE: Clear with pink turbinates. THROAT: No erythema or exudates. NECK: No masses, no JVD. CHEST: No chest wall deformity. LUNGS: Equal air entry with bibasilar crackles. CVS: S1 and S2 normal with no audible murmurs, regular rhythm. ABDOMEN: Obese, soft, normal bowel sounds, no guarding or rigidity. Extremities: There is trace peripheral edema. No clubbing, no cyanosis. Peripheral pulses are intact. Results - Laboratory Findings CBC and BMP: 07/11/16 06:17 07/11/16 06:17 PT/INR, D-dimer PT 30.5 sec (9.0-12.0) H 07/11/16 06:17 INR 3.1 (<1.1) 07/11/16 06:17 Abnormal lab findings: Abnormal Labs 07/10/16 07/11/16 07/11/16 20:26 05:50 06:17 Plt Count 104 L Neutrophils # 7.9 H Lymphocytes # 0.5 L PT Carbon Dioxide BUN Creatinine Glucose POC Glucose (mg/dL) 128 H 125 H Calcium 07/11/16 07/11/16 07/11/16 06:17 06:17 11:38 Plt Count Neutrophils # Lymphocytes # PT 30.5 H Carbon Dioxide 33 H BUN 22 H Creatinine 0.50 L Glucose 128 H POC Glucose (mg/dL) 160 H Calcium 8.2 L - Diagnostic Findings Chest x-ray: image reviewed Assessment and Plan Plan: Impression: #1 Acute exacerbation of combined systolic and diastolic congestive heart failure. Echocardiogram reveals severely impaired left ventricular systolic function with estimated ejection fraction 20-25%. Moderate pulmonary hypertension. #2 Moderate to large left-sided pleural effusion. #3 Acute hypoxic respiratory failure secondary to above. #4 Troponin leak. #5 Dementia. #6 CVA/TIA, history of #7 History of pulmonary embolism, and quite elated with warfarin, therapeutic. #8 History of depression. Plan: The patient was seen and evaluated by Dr. Alejo. Her chest x-ray, echocardiogram and labs were all reviewed. Patient has significant change in her LV function compared to previous. Clearly an exacerbation of congestive heart failure and possible myocardial infarction. We'll continue to diurese the patient. Continue BiPAP support. The patient is a lifelong nonsmoker, doubt COPD. She does remain on bronchodilators 4 times a day and when necessary along with Pulmicort and Perforomist inhalations twice a day, continue Singulair, continue steroids, continue empiric antibiotics in the form of Levaquin. Her overall prognosis remains quite guarded at this point. She is a DO NOT RESUSCITATE/DO NOT INTUBATE CODE STATUS. We will continue to follow. Time with Patient: Greater than 30
[2016-07-11 17:11] LABS: Glucose,Whole Blood 121 mg/dL (75-99)
[2016-07-11] MEDS: QUEtiapine 25 MG TAB PO SCH (21:12)
[2016-07-11] MEDS: FLUTICASONE 50MCG/SPRAY NASAL 16GM EA NOSTRIL SCH (21:12)
[2016-07-11] MEDS: MULTIVITAMINS, THERA 1 EACH TAB PO SCH (21:13)
[2016-07-11] MEDS: LEVOFLOXACIN 500MG-D5W PMX 500 MG in DEXTROSE/WATER 1 100ML.BAG IVPB SCH (21:21)
[2016-07-11 21:31] LABS: Glucose,Whole Blood 120 mg/dL (75-99)
[2016-07-12] MEDS: ARTIFICIAL TEARS-HYPROMELLOSE DROPS 15 ML BTL BOTH EYES SCH ×4 (03:19→21:10)
[2016-07-12 06:14] LABS: Basophils % (A) 0 %; CH 27.6; CHCM 30.1; Eosinophils % (A) 0 %; HCT 42.9 % (34.0-46.0); HDW 2.51; HGB 12.9 gm/dL (11.4-16.0); Hypochromasia Moderate; Luc # (Auto) 0.07; Luc % (Auto) 1; Lymphocytes # (A) 0.3 k/uL (1.0-4.8); Lymphocytes % (A) 5 %; MCH 27.7 pg (25.0-35.0); MCV 92.2 fL (80.0-100.0); Mean Platelet Volume 7.7; Monocytes # (A) 0.3 k/uL (0-1.0); Monocytes % (A) 4 %; Neutrophils # (A) 5.8 k/uL (1.3-7.7); Neutrophils % (A) 89 %; RBC 4.66 m/uL (3.80-5.40); RDW 14.5 % (11.5-15.5); WBC 6.4 k/uL (3.8-10.6); WBC (Perox) 6.76
[2016-07-12 06:23] LABS: Glucose,Whole Blood 122 mg/dL (75-99)
[2016-07-12] MEDS: INSULIN LISPRO (humaLOG) 300 UNIT/3 ML VIAL SQ SCH ×4 (06:31→21:11)
[2016-07-12 06:35] LABS: Prothrombin Time 85.4 sec (9.0-12.0)
[2016-07-12 06:36] LABS: Anion Gap 6 mmol/L; Blood Urea Nitrogen 28 mg/dL (7-17); Calcium 8.4 mg/dL (8.4-10.2); Carbon Dioxide 37 mmol/L (22-30); Chloride 98 mmol/L (98-107); Glucose 129 mg/dL (74-99); Non-African American GFR(MDRD) >60 (>60 ml/min/1.73 sqM); Potassium 3.8 mmol/L (3.5-5.1); Sodium 141 mmol/L (137-145)
[2016-07-12] MEDS: methylPREDNISolone SOD SUCCI 125 MG/2 ML VIAL IV SCH ×3 (06:36→17:21)
[2016-07-12 06:51] LABS: INR 8.2 (<1.1)
--- NOTE | 2016-07-12 07:24 | PN ---
DATE OF SERVICE: 07/11/2016 This 76-year-old woman who was admitted with shortness of breath, had possible CHF acute exacerbation. The patient is still on BiPAP. Sodium is slightly improved at this time. A 2-D echo with Doppler was done today, showed ejection fraction about 20% to 25% with multiple valvular abnormalities and wall motion abnormalities. Pulmonary and cardiology are following the patient closely. Moderate large left-sided pleural effusion suspected. The patient also had respiratory failure. The patient also with pulmonary embolism. PAST MEDICAL HISTORY: Could not be taken, the patient is confused and patient is on BiPAP. Current medications are reviewed and include: 1. Tylenol 650 mg every 8 and p.r.n. 2. [place] 5 mg p.r.n. 3. DuoNeb q.i.d. and p.r.n. 4. Xanax 0.25 t.i.d. 5. Norvasc 5 mg p.o. daily. 6. Artificial Tears. 7. Aspirin 325 mg daily. 8. Pulmicort 1 mg b.i.d. 9. Colace 100 mg p.o. daily. 10. Lexapro 20 mg daily. 11. Flonase. 12. Perforomist 20 mg mcg b.i.d. 13. Lasix 40 IV every 8. 14. Cephalexin and Levaquin IV. 15. Singulair. 16. Nitro-Bid. 17. Protonix. 18. Seroquel. 19. Coumadin. The patient is alert and oriented x1. Pulse is 83, blood pressure 120/60, respiration 20, temperature normal, pulse ox 92% on BiPAP. BiPAP settings are noted 12 and 7. HEENT: Conjunctivae normal. Oral mucosa moist. NECK: Obese. CARDIOVASCULAR SYSTEM: S1 and S2 muffled at the base. RESPIRATORY: Bilateral scattered rhonchi and crackles. Expiratory wheezing also present. ABDOMEN: Soft, obese, nontender. No mass palpable. EXTREMITIES: Legs no edema. NERVOUS SYSTEM: Higher function as mentioned. Moves all limbs equally. SKIN: No ulcer, rash or bleeding. LABS: CBC, platelets 164, INR 3.1. Other labs are sodium 128, calcium 8.2. ASSESSMENT: 1. Congestive heart failure acute exacerbation, with acute on chronic systolic dysfunction, ejection fraction 20% to 25% with acute hypoxic respiratory failure on BiPAP. 2. Possible cardiomyopathy. 3. Possible pneumonia. 4. Thrombocytopenia. 5. Troponin 0.35 indeterminate. 6. Change in mental status, metabolic encephalopathy, acute on chronic. 7. Morbid obesity, body mass index 48.6. 8. History of asthma. 9. History of coronary artery disease. 10. History of congestive heart failure. 11. History of cerebrovascular accident, transient ischemic attack. 12. History of dementia. 13. Chronic respiratory failure, on home 02, 4 liters. 14. History of ovarian cancer. 15. History of methicillin-resistant Staphylococcus aureus. 16. History of appendectomy and cholecystectomy. 17. History of depression, not otherwise specified. 18. History of pulmonary embolism. 19. 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 20. History of bipolar, depression, not otherwise specified. 21. Coumadin coagulopathy. 22. NO CODE, NO CPR, NO VENT. RECOMMENDATIONS AND DISCUSSION: In this 78-year-old female who presented with multiple complex medical issues, we will monitor the patient closely, continue with current medications and IV diuretics and empiric antibiotics. Continue with BiPAP. Otherwise, Dr. Alejo and cardiology input appreciated. Guarded prognosis. Repeat labs will be ordered. Recommend to hold the Coumadin. Otherwise continue the rest of the medications. Prognosis extremely guarded because of multiple complex medical issues. Further recommendations to follow.
[2016-07-12 07:49] LABS: Prothrombin Time 85.3 sec (9.0-12.0)
[2016-07-12 08:01] LABS: INR 8.2 (<1.1)
[2016-07-12] MEDS: FORMOTEROL FUMARATE 20 MCG/2 ML NEBU INHALATION SCH ×2 (08:20→20:04)
[2016-07-12] MEDS: BUDESONIDE 1 MG/2 ML NEBU INHALATION SCH ×2 (08:20→20:05)
[2016-07-12] MEDS: IPRATROPIUM-ALBUTEROL 3 ML NEB INHALATION SCH ×4 (08:20→20:05)
[2016-07-12] MEDS ORDERED: PHYTONADIONE ORAL 5 MG/5 ML ORAL.SYRG PO STA (08:25)
[2016-07-12] MEDS: FUROSEMIDE 10 MG/ML 4 ML VIAL IV SCH ×3 (09:54→21:51)
[2016-07-12] MEDS: ESCITALOPRAM 20 MG TAB PO SCH (09:55)
[2016-07-12] MEDS: ASPIRIN 325 MG TAB PO SCH (09:55)
[2016-07-12] MEDS: MONTELUKAST 10 MG TAB PO SCH (09:55)
[2016-07-12] MEDS: PANTOPRAZOLE 40 MG/10 ML VIAL IVP SCH (09:55)
[2016-07-12] MEDS: NITROGLYCERIN OINT 1 INCH/GM PACKET TOPICAL SCH ×4 (09:56→21:22)
[2016-07-12] MEDS: SODIUM CHLORIDE 0.65% NASAL SPRAY 44 ML BTL NASAL SCH ×2 (09:56→21:10)
[2016-07-12] MEDS: DOCUSATE 100 MG CAP PO SCH (09:56)
[2016-07-12] MEDS: amLODIPine 5 MG TAB PO SCH (09:56)
[2016-07-12 12:06] LABS: Glucose,Whole Blood 140 mg/dL (75-99)
--- NOTE | 2016-07-12 15:17 | P.PN ---
Subjective This is a 76-year-old female patient who is currently on a BiPAP. She has a history of asthma, CAD, systolic heart failure, CVA, Alzheimer's dementia, she is on a home O2, history of being a smoker, PE in June 2015 and has been on Coumadin. She resides in an extended care facility. Due to the patient's Alzheimer's and be on a BiPAP limited review of systems was obtained in the HPI was gathered from the medical record. According to the records, patient had been expressing increasing shortness of breath for a couple of days and a chest x-ray was done that showed mild CHF with small pleural effusions. Patient's subsequent developed severe difficulty breathing, was tachypneic with labored respirations and EMS was called. Patient was found to have peripheral cyanosis and a low oxygen saturation. The patient was placed on a BiPAP and started on Lasix 40 mg IV push every 8 hours. Patient's BNP on admission was 29,500. She is more alert this morning, she remains confused. She does say that she is breathing better. Her INR was 8.2 this morning and Coumadin as on hold. Objective - Vital Signs Vital signs: Vital Signs Temp 98.2 F 07/12/16 08:00 Pulse 96 07/12/16 12:43 Resp 20 07/12/16 11:28 BP 127/72 07/12/16 11:26 Pulse Ox 93 L 07/11/16 16:00 Intake & Output 07/11/16 07/12/16 07/12/16 18:59 06:59 18:59 Intake Total 110 10 Output Total 1100 500 Balance -1100 -390 10 Weight 113.5 kg 112.5 kg 112.5 kg Intake: IV 10 10 Iv flush 10 10 Intake, IV Titration 100 Amount Levofloxacin 500Mg-D5w 100 Pmx 500 mg In Dextrose/ Water 1 100ml.bag @ 100 mls/hr IVPB Q24H [facility] Rx#: [id number] Output: Urine 1100 500 Other: Voiding Method Incontinent Diaper Diaper Incontinent Incontinent # Voids 2 2 - Exam PHYSICAL EXAMINATION: HEENT: Head is atraumatic, normocephalic. Pupils equal, round. Neck is supple. There is no elevated jugular venous pressure. HEART EXAMINATION: Heart sounds regular, S1 and S2 normal. No murmur or gallop heard. CHEST EXAMINATION: Lungs reveal coarse lung sounds with crackles bilaterally and diminished air entry to the bilateral lower lobes. No chest wall tenderness is noted on palpation or with deep breathing. ABDOMEN: Soft, obese nontender. Bowel sounds are heard. No organomegaly noted. EXTREMITIES: 2+ peripheral pulses with no evidence of peripheral edema and no calf tenderness noted. NEUROLOGIC patient is awake, alert and confused. . - Labs CBC & Chem 7: 07/12/16 05:51 07/12/16 05:51 Labs: Abnormal Lab Results - Last 24 Hours (Table) 07/11/16 07/11/16 07/12/16 Range/Units 17:08 21:27 05:51 MCHC 30.0 L (31.0-37.0) g/dL Plt Count 115 L (150-450) k/uL Lymphocytes # 0.3 L (1.0-4.8) k/uL PT (9.0-12.0) sec INR (<1.1) Carbon Dioxide (22-30) mmol/L BUN (7-17) mg/dL Glucose (74-99) mg/dL POC Glucose (mg/dL) 121 H 120 H (75-99) mg/dL 07/12/16 07/12/16 07/12/16 Range/Units 05:51 05:51 06:17 MCHC (31.0-37.0) g/dL Plt Count (150-450) k/uL Lymphocytes # (1.0-4.8) k/uL PT 85.4 H (9.0-12.0) sec INR 8.2 H* (<1.1) Carbon Dioxide 37 H (22-30) mmol/L BUN 28 H (7-17) mg/dL Glucose 129 H (74-99) mg/dL POC Glucose (mg/dL) 122 H (75-99) mg/dL 07/12/16 07/12/16 Range/Units 07:16 12:04 MCHC (31.0-37.0) g/dL Plt Count (150-450) k/uL Lymphocytes # (1.0-4.8) k/uL PT 85.3 H (9.0-12.0) sec INR 8.2 H* (<1.1) Carbon Dioxide (22-30) mmol/L BUN (7-17) mg/dL Glucose (74-99) mg/dL POC Glucose (mg/dL) 140 H (75-99) mg/dL Microbiology - Last 24 Hours (Table) 07/11/16 01:40 Urine Culture - Final Urine,Clean Catch Assessment and Plan Plan: Assessment and plan #1 acute on chronic systolic congestive heart failure #2 moderate to large left pleural effusion #3 bibasilar atelectasis and/or consolidation per chest x-ray #4 Alzheimer's dementia #5 history of pulmonary emboli #6 elevated troponin likely related to oxygen supply demand mismatch From cardiology's perspective, 2-D echo was reviewed and shows a severely impaired left ventricular systolic function with an ejection fraction of 20-25% . The patient is a DO NOT RESUSCITATE. We will continue medical management. Continue Lasix 40 mg IV push every 8 hours. We will add lisinopril 2.5 mg by mouth daily and carvedilol 3.125 mg by mouth twice a day. Continue to hold Coumadin reassess INR in the morning. Further recommendations to follow. [employer] W[employer] note has been reviewed, I agree with a documented findings and plan of care. Patient was seen and examined.
[2016-07-12] MEDS: LISINOPRIL 2.5 MG TAB PO SCH (15:46)
--- NOTE | 2016-07-12 16:48 | US ---
EXAMINATION TYPE: US chest DATE OF EXAM: 07/12/2016 3:15 PM COMPARISON: NONE CLINICAL HISTORY: left pleural effusion. EXAM MEASUREMENTS: Left Pleural Effusion fluid pocket: 2.0 cm Left skin to fluid thickness: 3.0 cm Left side not marked for possible thoracentesis outside the dept. Pulmonologists are able to review the images in the patient?s EMR. IMPRESSIONS: 1. Left pleural effusion
--- NOTE | 2016-07-12 16:59 | XR ---
EXAMINATION TYPE: XR chest 1V portable DATE OF EXAM: 07/12/2016 4:50 PM COMPARISON: NONE INDICATION: Dyspnea TECHNIQUE: Single frontal view of the chest is obtained. FINDINGS: The heart size is indistinct. The pulmonary vasculature is normal. There is complete opacification of the left lung. This is worsening from prior study. A large pleural effusion and/or atelectasis could be considered. IMPRESSION: 1. Opacification left lung. Correlate for large pleural effusion and/or atelectasis
[2016-07-12 17:09] LABS: Glucose,Whole Blood 132 mg/dL (75-99)
[2016-07-12] MEDS: CARVEDILOL 3.125 MG TAB PO SCH (17:21)
--- NOTE | 2016-07-12 18:44 | PN ---
This is a 76-year-old female patient who was brought here from the extended-care facility after having altered mental status and shortness of breath. Her initial O2 saturation at the time of EMS arrival was about 50%. She has since been maintained on BiPAP to maintain O2 saturation in the 90s. Her chest x-ray did reveal moderate to large left pleural effusion. Her INR today jumped to 8.2. She has been on Levaquin and warfarin. On physical exam, she is alert, currently resting fairly comfortable on BiPAP. She is afebrile and hemodynamically stable. Blood pressure 139/74, heart rate 89, respirations 20, temperature is 98.2. She is 90% O2 saturation. Her head is normocephalic. Sclerae are anicteric. Her neck is supple. Trachea midline. Her lungs have crackles in the bilateral posterior bases and more so on the left lung. Her heart is regular. S1, S2. Her abdomen is obese, soft, nontender. Bowel sounds are present. There is trace peripheral edema. No clubbing. No cyanosis. There are some noted contractures. INVESTIGATIONS: Blood cultures reveals no growth to date. Lab results reveal WBC 6.4, hemoglobin 12.9, platelet count 115,000. INR 8.2, sodium 141, potassium 3.8, chloride 98, CO2 of 37, BUN 28, creatinine 0.60. Her medications are reviewed. IMPRESSION: 1. Acute exacerbation of combined systolic and diastolic congestive heart failure. Echocardiogram revealed severely impaired left ventricular systolic function with estimated ejection fraction of 20% to 25%. 2. Moderate pulmonary hypertension. 3. Moderate to large pleural effusion. 4. Acute hypoxic respiratory failure secondary to above. 5. Troponin leak. 6. Dementia. 7. Cerebrovascular accident/transient ischemic attack, history of. 8. History of pulmonary embolism, anticoagulated with warfarin supratherapeutic. 9. History of depression. PLAN: The patient was seen and evaluated by Dr. Alejo. The patient continues to require significant BiPAP support. She is a DNR/DNI CODE STATUS. We will continue to diurese the patient. We will continue with bronchodilators. Continue antibiotics. Will hold the warfarin for now. We will repeat her chest x-ray in the a.m. to determine if there is a need for possible thoracentesis. We will continue to follow and make further recommendations based on her clinical status.
--- NOTE | 2016-07-12 19:22 | CT ---
EXAMINATION TYPE: CT chest wo con DATE OF EXAM: 07/12/2016 7:05 PM COMPARISON: NONE HISTORY: Pt states of CÉSAR. CT DLP: 603.1 mGycm, Automated exposure control for dose reduction was used. CONTRAST: Performed injected with 0 mL of Omnipaque 300. TECHNIQUE: Axial images were obtained at 5 mm thick sections. Reconstructed images are reviewed on [employer] computer in the coronal plane. FINDINGS: Thyroid is out of the [id number]. There is a left apical thickening. Scarring atelectasis and a mass could be considered. There is a la rge left upper lobe consolidation with air bronchograms. Correlate for pneumonia. Mild infiltrate is along the medial right lower lobe. Small area of pneumonitis at the right apex.. No enlarged mediastinal or hilar adenopathy is evident. The ascending aorta diameter at the level o f the main pulmonary artery is 4.0 cm. The main pulmonary artery diameter at the bifurcation is 3.[address] sections are obtained through the upper abdomen. Abdomen is essentially unremarkable. Examination is somewhat limited given the lack of intravenous contrast as well as positioning during this exam. Degree of inspiration is limited. Underlying masses would be difficult to exclude. Follow- up is recommended. IMPRESSIONS: 1. Large left upper to lower lung field consolidation suspicious for pneumonia. 2. Mild infiltrate in the posterior medial right lung base can also be compatible with pneumonia. 3. Follow-up is recommended.
[2016-07-12 19:55] LABS: INR 3.3 (<1.1); Prothrombin Time 32.5 sec (9.0-12.0)
[2016-07-12] MEDS: FLUTICASONE 50MCG/SPRAY NASAL 16GM EA NOSTRIL SCH (21:11)
[2016-07-12] MEDS: MULTIVITAMINS, THERA 1 EACH TAB PO SCH ×2 (21:11→21:34)
[2016-07-12] MEDS: QUEtiapine 25 MG TAB PO SCH ×2 (21:11→21:34)
[2016-07-12 21:13] LABS: Glucose,Whole Blood 120 mg/dL (75-99)
[2016-07-12] MEDS: guaiFENesin 600 MG TABLET.ER PO SCH (22:23)
[2016-07-12] MEDS: LEVOFLOXACIN 500MG-D5W PMX 500 MG in DEXTROSE/WATER 1 100ML.BAG IVPB SCH (22:23)
[2016-07-13] MEDS: methylPREDNISolone SOD SUCCI 125 MG/2 ML VIAL IV SCH ×5 (00:28→23:41)
[2016-07-13] MEDS: ARTIFICIAL TEARS-HYPROMELLOSE DROPS 15 ML BTL BOTH EYES SCH ×4 (03:07→20:00)
[2016-07-13 06:12] LABS: Glucose,Whole Blood 118 mg/dL (75-99)
[2016-07-13] MEDS: INSULIN LISPRO (humaLOG) 300 UNIT/3 ML VIAL SQ SCH ×4 (06:42→23:38)
[2016-07-13] MEDS: CARVEDILOL 3.125 MG TAB PO SCH ×2 (06:44→17:07)
[2016-07-13 07:05] LABS: Basophils # (A) 0.1 k/uL (0-0.2); Basophils % (A) 1 %; CH 27.6; CHCM 30.4; Eosinophils % (A) 0 %; HDW 2.47; HGB 13.5 gm/dL (11.4-16.0); Hypochromasia Moderate; Luc # (Auto) 0.09; Luc % (Auto) 2; Lymphocytes # (A) 0.4 k/uL (1.0-4.8); Lymphocytes % (A) 6 %; MCHC 30.7 g/dL (31.0-37.0); MCV 91.1 fL (80.0-100.0); Mean Platelet Volume 7.2; Monocytes # (A) 0.2 k/uL (0-1.0); Monocytes % (A) 4 %; Neutrophils # (A) 5.1 k/uL (1.3-7.7); Neutrophils % (A) 88 %; RBC 4.83 m/uL (3.80-5.40); RDW 14.3 % (11.5-15.5); WBC 5.8 k/uL (3.8-10.6); WBC (Perox) 6.11
[2016-07-13 07:28] LABS: Blood Urea Nitrogen 29 mg/dL (7-17); Calcium 8.3 mg/dL (8.4-10.2); Chloride 92 mmol/L (98-107); Glucose 122 mg/dL (74-99); INR 1.9 (<1.1); Non-African American GFR(MDRD) >60 (>60 ml/min/1.73 sqM); Potassium 3.3 mmol/L (3.5-5.1); Prothrombin Time 18.2 sec (9.0-12.0); Sodium 144 mmol/L (137-145)
[2016-07-13 07:34] LABS: Anion Gap 8 mmol/L
[2016-07-13 07:42] LABS: Carbon Dioxide 44 mmol/L (22-30)
[2016-07-13] MEDS: FORMOTEROL FUMARATE 20 MCG/2 ML NEBU INHALATION SCH ×2 (07:43→19:22)
[2016-07-13] MEDS: BUDESONIDE 1 MG/2 ML NEBU INHALATION SCH ×2 (07:43→19:22)
[2016-07-13] MEDS: IPRATROPIUM-ALBUTEROL 3 ML NEB INHALATION SCH ×4 (07:43→19:22)
[2016-07-13] MEDS: FUROSEMIDE 10 MG/ML 4 ML VIAL IV SCH ×3 (08:51→23:41)
[2016-07-13] MEDS: SODIUM CHLORIDE 0.65% NASAL SPRAY 44 ML BTL NASAL SCH ×2 (08:51→21:44)
[2016-07-13] MEDS: guaiFENesin 600 MG TABLET.ER PO SCH ×2 (08:52→21:43)
[2016-07-13] MEDS: ASPIRIN 325 MG TAB PO SCH (08:52)
[2016-07-13] MEDS: amLODIPine 5 MG TAB PO SCH (08:52)
[2016-07-13] MEDS: LISINOPRIL 2.5 MG TAB PO SCH (08:53)
[2016-07-13] MEDS: PANTOPRAZOLE 40 MG TABLET PO SCH (08:53)
[2016-07-13] MEDS: ESCITALOPRAM 20 MG TAB PO SCH (08:53)
[2016-07-13] MEDS: MONTELUKAST 10 MG TAB PO SCH (08:53)
[2016-07-13] MEDS: NITROGLYCERIN OINT 1 INCH/GM PACKET TOPICAL SCH ×4 (08:54→21:45)
[2016-07-13] MEDS: DOCUSATE 100 MG CAP PO SCH (08:54)
--- NOTE | 2016-07-13 10:30 | PN ---
DATE OF SERVICE: 07/12/2016 This 76-year-old woman was admitted with significant congestive heart failure acute exacerbation. Patient still on BiPAP at this time. The patient is mildly confused. Multiple consultants are following the patient closely. The patient also had pleural effusion. A chest ultrasound was also done, which showed a left pleural effusion probably 2 cm. Otherwise Pulmonary is following the patient closely also. The most recent chest x-ray which was done reviewed personally by me showed significant widening of the left side of the chest indicating pleural effusion or collapse at this time. PAST MEDICAL HISTORY: Reviewed. INR 8.2. REVIEW OF SYSTEMS: Could not be taken, the patient is on BiPAP. The current medications are: 1. Tylenol. 2. [place] 5 mg. 3. DuoNeb q.i.d. and p.r.n. 4. Norvasc 5 mg. 5. Aspirin. 6. Pulmicort. 7. Colace. 8. Lexapro. 9. Lasix. 10. Cephulac. 11. Levaquin. 12. Milk of magnesia. 13. Solu-Medrol. 14. Protonix. 15. Seroquel. 16. Vitamins. 17. Coumadin 8 mg. PHYSICAL EXAMINATION: The patient is alert and oriented times two. Pulse is 78, blood pressure 120/84, respiratory rate 20, temperature normal, pulse ox on BiPAP to 89%. HEENT: Conjunctivae normal. NECK: No jugular venous distention. CARDIOVASCULAR: S1, S2 muffled. RESPIRATORY: Breath sounds diminished at the bases. Bilateral scattered rhonchi and crackles. ABDOMEN: Soft, nontender. LEGS: No edema. No swelling. CENTRAL NERVOUS SYSTEM: No focal deficits. LABS: At this time shows INR is 8.2. Other labs noted. ASSESSMENT: 1. Congestive heart failure acute exacerbation, with acute on chronic systolic dysfunction, ejection fraction 20-25%, acute hypoxic respiratory failure on BiPAP. 2. Possible left pleural effusion or collapse. 3. Possible cardiomyopathy. 4. Pneumonia. 5. Thrombocytopenia. 6. Troponin 0.35, indeterminate. 7. Change in mental status, metabolic encephalopathy, acute on chronic. 8. Morbid obesity body mass index of 48.6. 9. History of asthma. 10. History of coronary artery disease. 11. History of congestive heart failure. 12. History of cerebrovascular accident, transient ischemic attack. 13. History of dementia. 14. History of chronic respiratory failure on home O2 4 liters. 15. History of ovarian cancer. 16. History of methicillin-resistant Staphylococcus aureus. 17. History of appendectomy, cholecystectomy. 18. History of depression, not otherwise specified. 19. History of pulmonary embolism. 20. 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 21. History of bipolar, depression not otherwise specified. 22. Coumadin coagulopathy. 23. NO CODE, NO CPR, NO VENT. RECOMMENDATIONS AND DISCUSSION: In this 76-year-old woman who presented with multiple complex medical issues, we will monitor the patient closely, continue current medications, continue symptomatic treatment, recommend to continue bronchodilators and empiric antibiotics. I would also recommend a CT scan of the chest done, also closely follow with pulmonary and otherwise Coumadin coagulopathy . The prognosis is guarded. Further recommendations to follow. MTDD
[2016-07-13 11:44] LABS: Glucose,Whole Blood 157 mg/dL (75-99)
[2016-07-13] MEDS: PIPERACILLIN-TAZOBACTAM 3.375 GM in DEXTROSE/WATER 1 50ML.BAG IVPB SCH ×2 (16:21→23:41)
[2016-07-13 16:31] LABS: Glucose,Whole Blood 168 mg/dL (75-99)
--- NOTE | 2016-07-13 16:59 | PN ---
76-year-old female who resides at a alf. She apparently was initially brought in on 10 of July for altered mental status, shortness of breath and pneumonia. Her initial saturations when EMS arrived were about 50%. Since that time she has been maintained on BiPAP with saturations in the low 90s. More recently her saturations have declined. I was called last night by the nurses to tell me that her saturations on an FiO2 of 100% were just in the high 80s. Her chest x-ray apparently does reveal progression of her disease. Apparently she had a left pleural effusion. Ultrasound revealed only a small pocket on the left side. A CAT scan was apparently ordered by someone and it showed an infiltrate in the right lung, but more extensive and significant consolidation in the left lung. This could relate to pneumonia and/or mucous plugging or both. Her INR jumped up to 8.2. She had been on Levaquin. She was previously on warfarin, which is currently on hold. I was planning to do a thoracentesis on her but because fluid pocket on the left side was so small I chose not to do that. In addition, apparently according to the nurse, there was some talk of hospice referral. He was going to call Dr. Billings and Dr. Billings was going to continue to talk to the family and get some additional guidelines. Currently, she is on the BiPAP. Saturations are in the mid to high 80s. She is on 100%. Not particularly alert. Does arouse and does open her eyes. Current vital signs are reviewed. Her temperature is 98.8, heart rate 72, respiratory rate 24, blood pressure 108/57, mean 74. Saturations are documented mid 90s and on the BiPAP at 100%. Appears in no acute distress. Tachypneic and dyspneic. HEENT examination is grossly unremarkable. Mucous membranes are moist. NECK: Supple. Full range of motion. No adenopathy or thyromegaly. Neck is veins are flat. Cardiovascular examination reveals a regular rhythm and rate. Heart rate in the mid 80s. S1, S2 normal. No S3, S4, or murmur. Lungs reveal diminished breath sounds on the left. A few scattered coarse rhonchi. No wheezes or crackles. ABDOMEN: Soft. Bowel sounds are heard. EXTREMITIES: Intact. Some slight edema noted. SKIN: Without rash. NEUROLOGICAL: Cannot be performed. Labs are reviewed. White count 5.8, hemoglobin 13.5, hematocrit 44.0, platelet count 137,000. PT, INR was 18.2 and 1.9. Sodium 144, potassium 3.3, chloride 92, CO2 of 44, BUN and creatinine were 29 and 0.71. The rest of her labs are reviewed. Her initial N-terminal proBNP was 29,500. Microbiologically, blood and urine are negative. Currently, the patient's medications include: 1. Tylenol. 2. Artificial tears. 3. Aspirin. 4. Pulmicort. 5. Coreg. 6. Colace. 7. Lexapro. 8. Flonase nasal spray. 9. Formoterol. 10. Lasix. 11. [place]. 12. Insulin. 13. Updrafts with albuterol and Atrovent. 14. Lactulose. 15. Levaquin. 16. Lisinopril. 17. Magnesium. 18. Montelukast. 19. Singulair. 20. Nitroglycerin. 21. Protonix. 22. Vitamin K. 23. Seroquel. 24. Saline nasal spray. 25. Amlodipine. 26. Guaifenesen. 27. Solu-Medrol. ASSESSMENT: 1. An acute exacerbation of both combined systolic and diastolic congestive heart failure. Initial very high N-terminal proBNP. 2. Cardiomyopathy with an ejection fraction of 20 to 25%. 3. Moderate pulmonary hypertension. 4. Small left pleural effusion. 5. Bilateral pneumonia, left greater than right. 6. Acute hypoxemic respiratory failure. 7. Dementia. 8. Cerebrovascular accident/transient ischemic attack. 9. History of pulmonary embolism, currently on anticoagulation. 10. History of depression. PLAN: She is a DO NOT RESUSCITATE /DO NOT INTUBATE. I do not think there is enough fluid to drain on the left side. Bronchoscopy would be awfully risky and would probably send the patient in a maikol respiratory failure. We are in the process of trying to contact and talk further with the family members. The nurse seems to believe that the family is ready to make a hospice referral. Additional recommendations and suggestions are forthcoming. Prognosis is very poor.
--- NOTE | 2016-07-13 18:59 | P.PN ---
Subjective Principal diagnosis: Congestive heart failure, atrial fibrillation, pneumonia, Alzheimer's disease and cardiomyopathy This elderly female who was residing in extended-care facility was brought in because of increasing shortness of breath and cyanosis. Patient was found to have evidence of CHF which is acute on running systolic heart failure and also possible pneumonia. Patient had an echocardiogram which showed an ejection fraction of 20-25%. Patient has been on IV Lasix along with lisinopril and also carvedilol. Patient's computed tomography scan showed evidence of left- sided pneumonia. 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 There is a question that patient could be hospice care. Currently she is no code. From cardiac point we'll continue current medical therapy . She is also on BiPAP Objective - Vital Signs Vital signs: Vital Signs Temp 98 F 07/13/16 08:00 Pulse 80 07/13/16 16:03 Resp 24 07/13/16 16:00 BP 104/58 07/13/16 16:00 Pulse Ox 94 L 07/13/16 16:00 Intake & Output 07/12/16 07/13/16 07/13/16 18:59 06:59 18:59 Intake Total 10 140 Balance 10 140 Weight 112.5 kg 108.5 kg Intake: IV 10 40 Iv flush 10 40 Intake, IV Titration 100 Amount Levofloxacin 500Mg-D5w 100 Pmx 500 mg In Dextrose/ Water 1 100ml.bag @ 100 mls/hr IVPB Q24H [facility] Rx#: [id number] Other: Voiding Method Diaper Diaper Diaper Incontinent Incontinent Incontinent # Voids 2 1 1 # Bowel Movements 0 - Exam GENERAL EXAM: Patient is in moderate distress. Patient is bi-Pap machine HEENT: Normocephalic. Normal reaction of pupils, equal size, normal range of extraocular motion. No erythema or exudates in the throat. NECK: No masses, no nuchal rigidity. CHEST: No chest wall deformity. LUNGS: Diminished breath sounds and scattered rhonchi HEART: Stent heart sounds ABDOMEN: No hepatosplenomegaly, normal bowel sounds, no guarding or rigidity. SKIN: No rashes CENTRAL NERVOUS SYSTEM: No focal deficits. EXTREMITIES: Mild to moderate edema - Labs CBC & Chem 7: 07/13/16 05:56 07/13/16 05:56 Labs: Abnormal Lab Results - Last 24 Hours (Table) 07/12/16 07/12/16 07/13/16 Range/Units 19:25 21:07 05:56 MCHC 30.7 L (31.0-37.0) g/dL Plt Count 137 L (150-450) k/uL Lymphocytes # 0.4 L (1.0-4.8) k/uL PT 32.5 H (9.0-12.0) sec Potassium (3.5-5.1) mmol/L Chloride (98-107) mmol/L Carbon Dioxide (22-30) mmol/L BUN (7-17) mg/dL Glucose (74-99) mg/dL POC Glucose (mg/dL) 120 H (75-99) mg/dL Calcium (8.4-10.2) mg/dL 07/13/16 07/13/16 07/13/16 Range/Units 05:56 05:56 06:09 MCHC (31.0-37.0) g/dL Plt Count (150-450) k/uL Lymphocytes # (1.0-4.8) k/uL PT 18.2 H (9.0-12.0) sec Potassium 3.3 L (3.5-5.1) mmol/L Chloride 92 L (98-107) mmol/L Carbon Dioxide 44 H* (22-30) mmol/L BUN 29 H (7-17) mg/dL Glucose 122 H (74-99) mg/dL POC Glucose (mg/dL) 118 H (75-99) mg/dL Calcium 8.3 L (8.4-10.2) mg/dL 07/13/16 07/13/16 Range/Units 11:41 16:29 MCHC (31.0-37.0) g/dL Plt Count (150-450) k/uL Lymphocytes # (1.0-4.8) k/uL PT (9.0-12.0) sec Potassium (3.5-5.1) mmol/L Chloride (98-107) mmol/L Carbon Dioxide (22-30) mmol/L BUN (7-17) mg/dL Glucose (74-99) mg/dL POC Glucose (mg/dL) 157 H 168 H (75-99) mg/dL Calcium (8.4-10.2) mg/dL Assessment and Plan (1) Acute exacerbation of chronic obstructive airways disease Status: Acute (2) HTN (hypertension) Status: Acute (3) Pneumonia Status: Acute (4) Systolic CHF, acute on chronic Status: Acute Plan: Continue current medical therapy with AMY inhibitor, beta jason and diuretics. Patient is also being followed by a aircraft seat upholsterer for pneumonia. Overall her prognosis is guarded. She is no CODE STATUS. There is a pocket that she could be considered for hospice care,
[2016-07-13] MEDS: LEVOFLOXACIN 500 MG TAB PO SCH (20:00)
[2016-07-13 21:18] LABS: Glucose,Whole Blood 148 mg/dL (75-99)
[2016-07-13] MEDS: FLUTICASONE 50MCG/SPRAY NASAL 16GM EA NOSTRIL SCH (21:42)
[2016-07-13] MEDS: MULTIVITAMINS, THERA 1 EACH TAB PO SCH (21:44)
[2016-07-13] MEDS: QUEtiapine 25 MG TAB PO SCH (21:44)
[2016-07-14] MEDS: ARTIFICIAL TEARS-HYPROMELLOSE DROPS 15 ML BTL BOTH EYES SCH ×4 (03:49→21:09)
[2016-07-14] MEDS: CARVEDILOL 3.125 MG TAB PO SCH ×2 (06:43→18:03)
[2016-07-14] MEDS: methylPREDNISolone SOD SUCCI 125 MG/2 ML VIAL IV SCH ×3 (06:43→18:03)
[2016-07-14] MEDS: INSULIN LISPRO (humaLOG) 300 UNIT/3 ML VIAL SQ SCH ×4 (06:44→21:11)
[2016-07-14 06:48] LABS: Basophils # (A) 0.1 k/uL (0-0.2); Basophils % (A) 1 %; CH 27.3; CHCM 30.2; Eosinophils % (A) 0 %; HCT 44.9 % (34.0-46.0); HDW 2.65; HGB 13.8 gm/dL (11.4-16.0); Hypochromasia Moderate; Luc # (Auto) 0.17; Luc % (Auto) 4; Lymphocytes # (A) 0.5 k/uL (1.0-4.8); Lymphocytes % (A) 11 %; MCH 27.8 pg (25.0-35.0); MCHC 30.7 g/dL (31.0-37.0); MCV 90.7 fL (80.0-100.0); Mean Platelet Volume 7.3; Monocytes # (A) 0.3 k/uL (0-1.0); Monocytes % (A) 5 %; Neutrophils # (A) 3.6 k/uL (1.3-7.7); Neutrophils % (A) 78 %; RBC 4.95 m/uL (3.80-5.40); RDW 14.1 % (11.5-15.5); WBC 4.5 k/uL (3.8-10.6); WBC (Perox) 4.33
[2016-07-14 06:58] LABS: INR 1.6 (<1.1); Prothrombin Time 15.3 sec (9.0-12.0)
[2016-07-14 07:05] LABS: Glucose,Whole Blood 143 mg/dL (75-99)
[2016-07-14 07:07] LABS: Blood Urea Nitrogen 36 mg/dL (7-17); Calcium 8.3 mg/dL (8.4-10.2); Chloride 95 mmol/L (98-107); Glucose 146 mg/dL (74-99); Non-African American GFR(MDRD) >60 (>60 ml/min/1.73 sqM); Potassium 3.1 mmol/L (3.5-5.1); Sodium 148 mmol/L (137-145)
[2016-07-14 07:14] LABS: Anion Gap 10 mmol/L
[2016-07-14] MEDS: IPRATROPIUM-ALBUTEROL 3 ML NEB INHALATION SCH ×4 (07:14→19:54)
[2016-07-14] MEDS: BUDESONIDE 1 MG/2 ML NEBU INHALATION SCH ×2 (07:14→19:54)
[2016-07-14 07:28] LABS: Carbon Dioxide 43 mmol/L (22-30)
[2016-07-14] MEDS: FORMOTEROL FUMARATE 20 MCG/2 ML NEBU INHALATION SCH ×2 (07:35→19:54)
[2016-07-14] MEDS: PIPERACILLIN-TAZOBACTAM 3.375 GM in DEXTROSE/WATER 1 50ML.BAG IVPB SCH ×2 (08:46→15:46)
[2016-07-14] MEDS: FUROSEMIDE 10 MG/ML 4 ML VIAL IV SCH ×2 (09:01→15:46)
[2016-07-14] MEDS: guaiFENesin 600 MG TABLET.ER PO SCH ×2 (09:02→21:09)
[2016-07-14] MEDS: amLODIPine 5 MG TAB PO SCH (09:02)
[2016-07-14] MEDS: ASPIRIN 325 MG TAB PO SCH (09:02)
[2016-07-14] MEDS: ESCITALOPRAM 20 MG TAB PO SCH (09:03)
[2016-07-14] MEDS: SODIUM CHLORIDE 0.65% NASAL SPRAY 44 ML BTL NASAL SCH ×2 (09:03→21:07)
[2016-07-14] MEDS: PANTOPRAZOLE 40 MG TABLET PO SCH (09:03)
[2016-07-14] MEDS: DOCUSATE 100 MG CAP PO SCH (09:04)
[2016-07-14] MEDS: MONTELUKAST 10 MG TAB PO SCH (09:04)
[2016-07-14] MEDS: NITROGLYCERIN OINT 1 INCH/GM PACKET TOPICAL SCH ×4 (09:04→21:11)
[2016-07-14] MEDS: LISINOPRIL 2.5 MG TAB PO SCH (09:04)
--- NOTE | 2016-07-14 09:07 | PN ---
DATE OF SERVICE: 07/13/2016 This 76 -year-old gentleman with significant CHF, also had significant pneumonia on the left side. The CAT showed significant pneumonia. The patient is on BiPAP. Dr. Alejo is following the patient closely. The patient is on broad-spectrum IV antibiotics. The legal guardian is Angelo Greer. Past medical history reviewed. Review of systems could not be taken, the patient is confused. Current medications are reviewed and include: 1. Tylenol 650 q.8 p.r.n. 2. [place] 5 mg. 3. Duoneb q.i.d. and p.r.n. 4. Norvasc 5 mg p.o. daily. 5. Artificial tears. 6. Aspirin 325 mg. 7. Pulmicort 1 mg b.i.d. 8. Coreg 3.125 b.i.d. 9. Colace 100 mg daily. 10. Lexapro 20 mg daily. 11. Flonase. 12. Perforomist. 13. Lasix 40 mg IV q.8. 14. Cephulac 20 grams daily. 15. Levaquin 500 daily. 16. Zestril. 17. Solu-Medrol 60 IV. 18. Multivitamin 1 p.o. daily. 19. Nitro-Bid ointments. 20. Protonix. 21. Zosyn 3.37 IV q.8. 22. Seroquel. 23. Sodium chloride two sprays nasal b.i.d. PHYSICAL EXAMINATION: The patient is stuporous. Pulse 80, blood pressure 105/50, respiratory rate 24, temperature normal, pulse ox 94% on BiPAP. HEENT: Conjunctivae normal. NECK: No jugular venous distention. CARDIOVASCULAR: S1, S2 muffled. RESPIRATORY: Breath sounds diminished at the bases. Bilateral scattered rhonchi and crackles. Expiratory wheezing also present. ABDOMEN: Soft, obese, nontender. LEGS: No edema. No swelling. CENTRAL NERVOUS SYSTEM: No focal deficits. LABS: WBC 5.6, hemoglobin 13.4, sodium 140, potassium 3.3. Other labs are noted. ASSESSMENT: 1. Congestive heart failure, acute exacerbation, with acute on chronic systolic dysfunction, ejection fraction 25% with acute hypoxic respiratory failure on BiPAP present on admission. 2. Acute left-sided pneumonia with pleural effusion with possible collapse. 3. Possible cardiomyopathy. 4. Thrombocytopenia. 5. Troponin 0.35, indeterminate. 6. Change in mental status, metabolic encephalopathy, acute on chronic. 7. Morbid obesity, body mass index of 48.6. 8. History of asthma. 9. History of coronary artery disease. 10. History of congestive heart failure. 11. History of cerebrovascular accident with left sided weakness. 12. History of dementia. 13. History of chronic respiratory failure on home O2 at 4 liters. 14. History of ovarian cancer. 15. History of methicillin-resistant Staphylococcus aureus. 16. History of appendectomy. 17. Cholecystectomy. 18. History of depression, not otherwise specified. 19. History of pulmonary embolism. 20. Right bundle branch block and left anterior elizabeth-block as well as bifascicular block on EKG. 21. History of bipolar depression, not otherwise specified. 22. Coumadin coagulopathy. 23. Hyperkalemia. 24. NO CODE, NO CPR, NO VENTILATOR. RECOMMENDATIONS AND DISCUSSION: Continue current medications and continue to monitor and symptomatic treatments. At this time, I recommend, potassium supplementation. Otherwise, continue IV antibiotics, bronchodilators. Add Zosyn to the current regimen. Discussed with Dr. Alejo. Otherwise, Dr. Alejo thought NO CODE, NO CPR, NO VENT is appropriate. We will talk with legal guardian and continue to monitor. Prognosis guarded. Further recommendations to follow. Discussed with staff. MENDOZA
[2016-07-14 11:56] LABS: Glucose,Whole Blood 146 mg/dL (75-99)
--- NOTE | 2016-07-14 12:54 | XR ---
EXAMINATION TYPE: XR chest 1V DATE OF EXAM: 07/14/2016 12:47 PM CLINICAL HISTORY: Difficulty breathing and pneumonia progress study. TECHNIQUE: Single AP portable upright view of the chest is obtained. COMPARISON: Chest x-ray and CT chest from 2 days earlier. FINDINGS: There is improved aeration involving the left upper lung. There is dense left lower lung o pacity silhouetting heart border and hemidiaphragm redemonstrated. Left-sided volume loss with medias tinal shift is again seen. Right lung redemonstrates right medial basilar atelectasis and/or infiltra te with suspected small right pleural effusion still present. Osseous structures are intact. Cardiac silhouette size cannot be assessed due to silhouetting but is enlarged on recent CT. IMPRESSION: Improved aeration left upper lung with persistent dense left lower lung consolidation and /or atelectasis with more focal left hilar infiltrate and/or atelectasis and left-sided volume loss w ith right medial basilar infiltrate and/or atelectasis and small right pleural effusion all redemonst rated. Underlying central mass or neoplasm cannot be excluded, progress study or bronchoscopy follow- up advised.
--- NOTE | 2016-07-14 14:02 | P.PN ---
Subjective Principal diagnosis: Congestive heart failure, atrial fibrillation, pneumonia, Alzheimer's disease and cardiomyopathy This elderly female who was residing in extended-care facility was brought in because of increasing shortness of breath and cyanosis. Patient was found to have evidence of CHF which is acute on running systolic heart failure and also possible pneumonia. Patient had an echocardiogram which showed an ejection fraction of 20-25%. Patient has been on IV Lasix along with lisinopril and also carvedilol. Patient's computed tomography scan showed evidence of left- sided pneumonia. Her weight today is down 2 kg from admission. Pressure 110/ 60 today, with a heart rate in the 70s. She is currently on BiPAP setting 93%. Discussions are being made regarding hospice care for her. Objective - Vital Signs Vital signs: Vital Signs Temp 96.1 F L 07/14/16 11:45 Pulse 73 07/14/16 11:45 Resp 26 H 07/14/16 11:45 BP 109/68 07/14/16 11:45 Pulse Ox 93 L 07/14/16 11:45 Intake & Output 07/13/16 07/14/16 07/14/16 18:59 06:59 18:59 Intake Total 110 0 Balance 110 0 Weight 106 kg Intake: IV 110 Iv flush 10 Piperacillin-Tazobactam 3 100 .375 gm In Dextrose/Water 1 50ml.bag @ 12.5 mls/hr IVPB Q8HR [facility] Rx#: [id number] Oral 0 Other: Voiding Method Diaper Diaper Diaper Incontinent Incontinent Incontinent # Voids 1 1 - Exam PHYSICAL EXAMINATION: HEENT: Head is atraumatic, normocephalic. Pupils equal, round. Neck is supple. There is no elevated jugular venous pressure. HEART EXAMINATION: Heart S1, S2 distant . No murmur or gallop heard. CHEST EXAMINATION: Lungs reveal improvement in air entry bilaterally fine crackles heard to the bilateral bases. ABDOMEN: Soft, nontender. Bowel sounds are heard. No organomegaly noted. EXTREMITIES: 2+ peripheral pulses with trace to 1+ evidence of peripheral edema and no calf tenderness noted. NEUROLOGIC patient is awake, alert . . - Labs CBC & Chem 7: 07/14/16 06:06 07/14/16 06:06 Labs: Abnormal Lab Results - Last 24 Hours (Table) 07/13/16 07/13/16 07/14/16 Range/Units 16:29 20:50 06:06 MCHC 30.7 L (31.0-37.0) g/dL Lymphocytes # 0.5 L (1.0-4.8) k/uL PT (9.0-12.0) sec Sodium (137-145) mmol/L Potassium (3.5-5.1) mmol/L Chloride (98-107) mmol/L Carbon Dioxide (22-30) mmol/L BUN (7-17) mg/dL Glucose (74-99) mg/dL POC Glucose (mg/dL) 168 H 148 H (75-99) mg/dL Calcium (8.4-10.2) mg/dL 07/14/16 07/14/16 07/14/16 Range/Units 06:06 06:06 06:38 MCHC (31.0-37.0) g/dL Lymphocytes # (1.0-4.8) k/uL PT 15.3 H (9.0-12.0) sec Sodium 148 H (137-145) mmol/L Potassium 3.1 L (3.5-5.1) mmol/L Chloride 95 L (98-107) mmol/L Carbon Dioxide 43 H* (22-30) mmol/L BUN 36 H (7-17) mg/dL Glucose 146 H (74-99) mg/dL POC Glucose (mg/dL) 143 H (75-99) mg/dL Calcium 8.3 L (8.4-10.2) mg/dL 07/14/16 Range/Units 11:49 MCHC (31.0-37.0) g/dL Lymphocytes # (1.0-4.8) k/uL PT (9.0-12.0) sec Sodium (137-145) mmol/L Potassium (3.5-5.1) mmol/L Chloride (98-107) mmol/L Carbon Dioxide (22-30) mmol/L BUN (7-17) mg/dL Glucose (74-99) mg/dL POC Glucose (mg/dL) 146 H (75-99) mg/dL Calcium (8.4-10.2) mg/dL Assessment and Plan (1) Acute exacerbation of chronic obstructive airways disease Status: Acute (2) Acute respiratory failure Status: Acute (3) HTN (hypertension) Status: Acute (4) Pulmonary HTN Status: Acute (5) Systolic CHF, acute on chronic Status: Acute Plan: From cardiology's perspective, we will recommend to continue current dose of IV Lasix. Discussions are currently being made regarding hospice care. We will follow this patient with you now on an as-needed basis only, please don't hesitate to call with any questions. DNP note has been reviewed, I agree with a documented findings and plan of care. Patient was seen and examined.
[2016-07-14] MEDS: DEXTROSE 5%-0.9% NACL 1,000 ML IV SCH (15:38)
--- NOTE | 2016-07-14 16:58 | P.PN ---
Subjective This is a 76-year-old female patient who resides in [facility]. She is followed by Dr. Shelley. She has a history of diastolic congestive heart failure, asthma, CVA/TIA, dementia, depression. She was here approximately one year ago for pulmonary embolism and is maintained on warfarin. The patient herself is a poor historian. She presented here from the [facility] by EMS after being found to be quite short of breath and having some altered mental status. Her oxygen saturation at that time is about 50%. Once here she was placed on BiPAP to maintain O2 saturations in the 90s. She is seen today on the selective care unit and consultation. Her chest x-ray does reveal a moderate to large left pleural effusion. ProBNP 29,500. Troponin 0.352. Currently INR 3.1 no leukocytosis. No anemia. She is afebrile. The patient is seen again today 07/14/2016 in follow-up on the selective care unit. She remains mainly on BiPAP to maintain O2 saturations in the 90s. Follow-up chest x-ray today did reveal actual improvement in the left lung consolidation. She would benefit from a bronchoscopy however she is still requiring 100% FiO2 which would make this quite risky at this point. She is alert and denies any worsening shortness of breath. She has a dry nonproductive cough. Blood and urine cultures revealed no growth. No leukocytosis. She is afebrile. Objective - Vital Signs Vital signs: Vital Signs Temp 96.1 F L 07/14/16 11:45 Pulse 68 07/14/16 16:00 Resp 26 H 07/14/16 11:45 BP 109/68 07/14/16 11:45 Pulse Ox 93 L 07/14/16 11:45 Intake & Output 07/13/16 07/14/16 07/14/16 18:59 06:59 18:59 Intake Total 110 0 Balance 110 0 Weight 106 kg Intake: IV 110 Iv flush 10 Piperacillin-Tazobactam 3 100 .375 gm In Dextrose/Water 1 50ml.bag @ 12.5 mls/hr IVPB Q8HR [facility] Rx#: [id number] Oral 0 Other: Voiding Method Diaper Diaper Diaper Incontinent Incontinent Incontinent # Voids 1 1 - Exam GENERAL EXAM: Alert, fairly comfortable in no apparent distress. HEAD: Normocephalic. EYES: Normal reaction of pupils, equal size. NOSE: Clear with pink turbinates. THROAT: No erythema or exudates. NECK: No masses, no JVD. CHEST: No chest wall deformity. LUNGS: Equal air entry with rhonchi and crackles to left lung CVS: S1 and S2 normal with no audible mumurs, regular rhythm. ABDOMEN: No hepatosplenomegaly, normal bowel sounds, no guarding or rigidity. Extremities: There is trace peripheral edema. No clubbing, no cyanosis. Peripheral pulses are intact. - Labs CBC & Chem 7: 07/14/16 06:06 07/14/16 06:06 Labs: Abnormal Lab Results - Last 24 Hours (Table) 07/13/16 07/14/16 07/14/16 Range/Units 20:50 06:06 06:06 MCHC 30.7 L (31.0-37.0) g/dL Lymphocytes # 0.5 L (1.0-4.8) k/uL PT 15.3 H (9.0-12.0) sec Sodium (137-145) mmol/L Potassium (3.5-5.1) mmol/L Chloride (98-107) mmol/L Carbon Dioxide (22-30) mmol/L BUN (7-17) mg/dL Glucose (74-99) mg/dL POC Glucose (mg/dL) 148 H (75-99) mg/dL Calcium (8.4-10.2) mg/dL 07/14/16 07/14/16 07/14/16 Range/Units 06:06 06:38 11:49 MCHC (31.0-37.0) g/dL Lymphocytes # (1.0-4.8) k/uL PT (9.0-12.0) sec Sodium 148 H (137-145) mmol/L Potassium 3.1 L (3.5-5.1) mmol/L Chloride 95 L (98-107) mmol/L Carbon Dioxide 43 H* (22-30) mmol/L BUN 36 H (7-17) mg/dL Glucose 146 H (74-99) mg/dL POC Glucose (mg/dL) 143 H 146 H (75-99) mg/dL Calcium 8.3 L (8.4-10.2) mg/dL Assessment and Plan Plan: Impression: #1 Acute exacerbation of combined systolic and diastolic congestive heart failure. Echocardiogram reveals severely impaired left ventricular systolic function with estimated ejection fraction 20-25%. Moderate pulmonary hypertension. #2 Significant left lung consolidation. There is large left upper and left lower lobe consolidation suspicious for pneumonia. There is a mild infiltrate in the posterior medial right lung base also compatible with pneumonia. #3 Acute hypoxic respiratory failure secondary to above. #4 Troponin leak. #5 Dementia. #6 CVA/TIA, history of #7 History of pulmonary embolism, anticoagulated with warfarin. #8 History of depression. Plan: The patient was seen and evaluated by Dr. Peng. Her chest x-ray, and labs were all reviewed. Patient has significant change in her LV function compared to previous. Clearly an exacerbation of congestive heart failure and possible myocardial infarction. We'll continue to diurese the patient. Continue BiPAP support. The patient is a lifelong nonsmoker, doubt COPD. She does remain on bronchodilators 4 times a day and when necessary along with Pulmicort and Perforomist inhalations twice a day, continue Singulair, continue steroids, continue empiric antibiotics in the form of Levaquin and Zosyn. Her overall prognosis remains quite guarded at this point. She is a DO NOT RESUSCITATE/DO NOT INTUBATE CODE STATUS. If her chest x-ray continues to improve and she is able to get her O2 requirements down to 50 or 60% we may consider bronchoscopy with BAL and possible biopsy. We will continue to follow.
[2016-07-14 17:31] LABS: Glucose,Whole Blood 131 mg/dL (75-99)
[2016-07-14] MEDS ORDERED: POTASSIUM CHLORIDE 10 MEQ in WATER FOR INJECTION 1 100ML.BAG IVPB SCH (20:30)
[2016-07-14] MEDS ORDERED: Potassium Replacement Protocol 1 EACH MISC MISCELLANE PRN (20:36)
[2016-07-14 20:46] LABS: Glucose,Whole Blood 179 mg/dL (75-99)
--- NOTE | 2016-07-14 21:00 | PN ---
DATE OF SERVICE: 07/14/2016 This 76-year-old woman was admitted with significant congestive heart failure acute exacerbation, also had extensive pneumonia in the left side. The patient also had some collapse also indicative of on the left-side. CAT scan has been done. Also, Dr. Peng is following the patient closely. The patient is almost on continuous on BiPAP at this time. The chest x-ray showed some improvement. The patient on broad spectrum IV antibiotics. The patient being closely monitored by Dr. Peng. Cardiology is following the patient closely. The chest x-ray today was personally reviewed. Past medical history reviewed. REVIEW OF SYSTEMS: Could not be taken, the patient is mildly confused. Current medications are reviewed and include: 1. Tylenol 650 q.8 p.r.n. 2. [place] 5 mg q6h p.r.n. 3. DuoNeb q.i.d. and p.r.n. 4. Norvasc 5 mg p.o. daily. 5. Artificial tears two drop both eyes. 6. Aspirin 320 mg daily. 7. Pulmicort 1 mg b.i.d. 8. Coreg 3.125 mg b.i.d. 9. Colace 100 mg p.o. daily. 10. Lexapro 20 mg p.o. daily. 12. Lasix 40 mg IV q8h. 13. Mucinex 1.2 q.12 p.r.n. 14. Cephalexin. 15. Levaquin 500 mg daily. 16. Zestril. 17. Milk of Magnesia. 18. Solu-Medrol 60 IV q6h. 19. Multivitamins. 20. Nitro-Bid. 21. Protonix. 22. Zosyn IV q.8. 23. Seroquel 12.5 mg. PHYSICAL EXAMINATION: The patient is alert and oriented times three. Pulse is 73, blood pressure 109/68, respiration 26, temperature is 96.1, pulse ox 93% on BiPAP. HEENT: Conjunctivae normal. Oral mucosa moist. NECK: Obese. CARDIOVASCULAR SYSTEM: S1, S2 muffled. No S3, no S4. RESPIRATORY: Breath sounds diminished at the bases. Bilateral scattered rhonchi and crackles. Abdomen: Soft and obese, nontender. Legs: Bilateral leg edema. CENTRAL NERVOUS SYSTEM: Diffusely weak. SKIN: No ulcer, rash or bleeding. LABS: Sodium 148, potassium 3.1, glucose noted. WBC normal. ASSESSMENT: 1. Congestive heart failure, acute exacerbation, acute on chronic systolic dysfunction, ejection fraction 25% with acute hypoxic respiratory failure on BiPAP, present on admission. 2. Acute left-sided pneumonia with a pleural effusion with possible collapse. 3. Possible cardiomyopathy. 4. Thrombocytopenia of undetermined origin. 5. Troponin 0.35, indeterminate. 6. Change in mental status, metabolic encephalopathy, acute on chronic. 7. Morbid obesity, body mass index of 48.6. 8. History of asthma, chronic intermittent. 9. History of coronary artery disease. 10. History of congestive heart failure. 11. History of cerebrovascular accident with left-sided weakness. 12. History of dementia. 13. History of chronic respiratory failure on home O2 4 liters. 14. History of ovarian cancer. 15. History of Methicillin-resistant Staph aureus. 16. History of appendectomy. 17. History of cholecystectomy. 18. History of depression, not otherwise specified. 19. Pulmonary embolism. 20. 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 21. History of bipolar, depression, not otherwise specified. 22. Coumadin coagulopathy, present on admission. 23. Hyperkalemia. 24. NO CODE, NO CARDIOPULMONARY RESUSCITATION, NO VENTILATOR. RECOMMENDATIONS: In this 76-year-old woman who presented with multiple complex medical issues, we will monitor the patient closely. Continue the current medications. Continue symptomatic treatment. Continue with antibiotics. Otherwise, bronchodilators. Continue the current medications. Discussed with Dr. Peng. The bronchoscopy might be a consideration once patient's condition improves and stabilizes. Otherwise, currently the prognosis is extremely guarded. Further recommendations to follow. MTDD
[2016-07-14] MEDS: QUEtiapine 25 MG TAB PO SCH (21:07)
[2016-07-14] MEDS: MULTIVITAMINS, THERA 1 EACH TAB PO SCH (21:08)
[2016-07-14] MEDS: FLUTICASONE 50MCG/SPRAY NASAL 16GM EA NOSTRIL SCH (21:09)
[2016-07-14] MEDS: LEVOFLOXACIN 500 MG TAB PO SCH (21:10)
[2016-07-14] MEDS: POTASSIUM CHLORIDE 10 MEQ, LIDOCAINE 2% INJ 10 MG in SODIUM CHLORIDE 0.9% 100 ML IV SCH ×2 (21:22→23:21)
[2016-07-15] MEDS: FUROSEMIDE 10 MG/ML 4 ML VIAL IV SCH ×2 (00:09→07:47)
[2016-07-15] MEDS: methylPREDNISolone SOD SUCCI 125 MG/2 ML VIAL IV SCH ×4 (00:09→16:55)
[2016-07-15] MEDS: PIPERACILLIN-TAZOBACTAM 3.375 GM in DEXTROSE/WATER 1 50ML.BAG IVPB SCH ×3 (02:00→16:48)
[2016-07-15] MEDS: ARTIFICIAL TEARS-HYPROMELLOSE DROPS 15 ML BTL BOTH EYES SCH ×4 (02:00→22:15)
[2016-07-15] MEDS: DEXTROSE 5%-0.9% NACL 1,000 ML IV SCH (06:05)
[2016-07-15 06:42] LABS: Glucose,Whole Blood 181 mg/dL (75-99)
[2016-07-15 06:50] LABS: Blood Urea Nitrogen 43 mg/dL (7-17); Calcium 8.2 mg/dL (8.4-10.2); Chloride 95 mmol/L (98-107); Glucose 155 mg/dL (74-99); Non-African American GFR(MDRD) >60 (>60 ml/min/1.73 sqM); Sodium 153 mmol/L (137-145)
[2016-07-15 06:52] LABS: INR 1.6 (<1.1); Prothrombin Time 15.9 sec (9.0-12.0)
[2016-07-15 06:58] LABS: Anion Gap 9 mmol/L
[2016-07-15] MEDS: INSULIN LISPRO (humaLOG) 300 UNIT/3 ML VIAL SQ SCH ×4 (07:02→22:18)
[2016-07-15] MEDS: CARVEDILOL 3.125 MG TAB PO SCH ×2 (07:02→16:54)
[2016-07-15 07:04] LABS: Aty Lym Flag Slight; CH 27.1; CHCM 29.9; HCT 44.4 % (34.0-46.0); HDW 2.63; Hypochromasia Marked; MCH 28.8 pg (25.0-35.0); MCHC 31.5 g/dL (31.0-37.0); MCV 91.1 fL (80.0-100.0); Mean Platelet Volume 7.8; RBC 4.87 m/uL (3.80-5.40); RDW 13.7 % (11.5-15.5); WBC 4.6 k/uL (3.8-10.6); WBC (Perox) 4.11
[2016-07-15 07:08] LABS: Carbon Dioxide 49 mmol/L (22-30)
[2016-07-15] MEDS ORDERED: Potassium Replacement Protocol 1 EACH MISC MISCELLANE PRN ×3 (07:11→23:18)
[2016-07-15] MEDS: BUDESONIDE 1 MG/2 ML NEBU INHALATION SCH ×2 (07:25→20:08)
[2016-07-15] MEDS: FORMOTEROL FUMARATE 20 MCG/2 ML NEBU INHALATION SCH ×2 (07:31→20:08)
[2016-07-15] MEDS: IPRATROPIUM-ALBUTEROL 3 ML NEB INHALATION SCH ×4 (07:31→20:08)
[2016-07-15] MEDS: POTASSIUM CHLORIDE 10 MEQ in WATER FOR INJECTION 1 100ML.BAG IVPB SCH ×4 (07:59→23:57)
[2016-07-15 08:14] LABS: Add Differential Manual Differential
[2016-07-15 08:20] LABS: Nucleated Red Blood Cells 0 /100 WBC (0-0); Total Cells Counted 100
[2016-07-15 08:57] LABS: Manual Review Performed
[2016-07-15] MEDS ORDERED: DEXTROSE 5% IN WATER 1,000 ML IV ONE (10:09)
[2016-07-15] MEDS: SODIUM CHLORIDE 0.65% NASAL SPRAY 44 ML BTL NASAL SCH ×2 (10:32→22:19)
[2016-07-15] MEDS: guaiFENesin 600 MG TABLET.ER PO SCH ×2 (10:32→22:18)
[2016-07-15] MEDS: ASPIRIN 325 MG TAB PO SCH (10:32)
[2016-07-15] MEDS: LISINOPRIL 2.5 MG TAB PO SCH (10:32)
[2016-07-15] MEDS: MONTELUKAST 10 MG TAB PO SCH (10:33)
[2016-07-15] MEDS: ESCITALOPRAM 20 MG TAB PO SCH (10:34)
[2016-07-15] MEDS: amLODIPine 5 MG TAB PO SCH (10:34)
[2016-07-15] MEDS: PANTOPRAZOLE 40 MG TABLET PO SCH (10:34)
[2016-07-15] MEDS: DOCUSATE 100 MG CAP PO SCH (10:35)
[2016-07-15] MEDS: NITROGLYCERIN OINT 1 INCH/GM PACKET TOPICAL SCH ×4 (10:35→22:19)
--- NOTE | 2016-07-15 11:27 | XR ---
EXAMINATION TYPE: XR chest 1V DATE OF EXAM: 07/15/2016 11:19 AM HISTORY: Shortness of breath. COMPARISON: 07/14/2016 TECHNIQUE: Single view of the chest is submitted. FINDINGS: Demonstrated are scattered senescent parenchymal change. Large area of consolidation is noted within the left lower lobe and lingula. No significant Change appreciated. The heart is stable. Hilar and mediastinal structures are within normal limits. Degenerative changes are seen of the dorsal spine. IMPRESSION: 1. Large area of consolidation is noted within the left lower lobe and lingula. No significant Change appreciated.
[2016-07-15 12:07] LABS: Glucose,Whole Blood 183 mg/dL (75-99)
--- NOTE | 2016-07-15 12:48 | P.PN ---
Subjective This is a 76-year-old female patient who resides in [facility]. She is followed by Dr. Shelley. She has a history of diastolic congestive heart failure, asthma, CVA/TIA, dementia, depression. She was here approximately one year ago for pulmonary embolism and is maintained on warfarin. The patient herself is a poor historian. She presented here from the [facility] by EMS after being found to be quite short of breath and having some altered mental status. Her oxygen saturation at that time is about 50%. Once here she was placed on BiPAP to maintain O2 saturations in the 90s. She is seen today on the selective care unit and consultation. Her chest x-ray does reveal a moderate to large left pleural effusion. ProBNP 29,500. Troponin 0.352. Currently INR 3.1 no leukocytosis. No anemia. She is afebrile. The patient is seen again today 07/14/2016 in follow-up on the selective care unit. She remains mainly on BiPAP to maintain O2 saturations in the 90s. Follow-up chest x-ray today did reveal actual improvement in the left lung consolidation. She would benefit from a bronchoscopy however she is still requiring 100% FiO2 which would make this quite risky at this point. She is alert and denies any worsening shortness of breath. She has a dry nonproductive cough. Blood and urine cultures revealed no growth. No leukocytosis. She is afebrile. The patient is seen again today in follow-up on 07/15/2016 on the selective care unit. She is more awake and alert today as compared to yesterday. She is doing better on 10 L of high flow nasal cannula while maintaining O2 saturations in the low 90s. She is able to tolerate longer periods of time off the BiPAP. Her chest x-ray does continue to show consolidation in left lung base no worse than yesterday. Objective - Vital Signs Vital signs: Vital Signs Temp 96.9 F L 07/15/16 04:00 Pulse 83 07/15/16 11:57 Resp 20 07/15/16 04:00 BP 119/69 07/15/16 04:00 Pulse Ox 93 L 07/15/16 11:38 Intake & Output 07/14/16 07/15/16 07/15/16 18:59 06:59 18:59 Intake Total 110 670 Balance 110 670 Weight 102 kg Intake: IV 50 670 Dextrose 5%-0.9% NaCl 1, 420 000 ml @ 60 mls/hr IV . [id number] [facility] Rx#:[id number] Piperacillin-Tazobactam 3 50 50 .375 gm In Dextrose/Water 1 50ml.bag @ 12.5 mls/hr IVPB Q8HR [facility] Rx#: [id number] Potassium Chloride 10 meq 200 Lidocaine 2% Inj 10 mg In Sodium Chloride 0.9% 100 ml @ 100 mls/hr IV Q1HR [facility] Rx#:[id number] Intake, IV Titration 60 Amount Dextrose 5%-0.9% NaCl 1, 60 000 ml @ 60 mls/hr IV . [id number] [facility] Rx#:[id number] Oral 0 Other: Voiding Method Diaper Diaper Incontinent Incontinent # Voids 1 1 - Exam GENERAL EXAM: Alert, fairly comfortable in no apparent distress. HEAD: Normocephalic. EYES: Normal reaction of pupils, equal size. NOSE: Clear with pink turbinates. THROAT: No erythema or exudates. NECK: No masses, no JVD. CHEST: No chest wall deformity. LUNGS: Equal air entry with rhonchi and crackles to left lung CVS: S1 and S2 normal with no audible mumurs, regular rhythm. ABDOMEN: No hepatosplenomegaly, normal bowel sounds, no guarding or rigidity. Extremities: There is trace peripheral edema. No clubbing, no cyanosis. Peripheral pulses are intact. - Labs CBC & Chem 7: 07/15/16 05:57 07/15/16 05:57 Labs: Abnormal Lab Results - Last 24 Hours (Table) 07/14/16 07/14/16 07/15/16 Range/Units 16:51 20:45 05:57 Lymphocytes # (Manual) 0.6 L (1.0-4.8) k/uL PT (9.0-12.0) sec Sodium (137-145) mmol/L Potassium (3.5-5.1) mmol/L Chloride (98-107) mmol/L Carbon Dioxide (22-30) mmol/L BUN (7-17) mg/dL Glucose (74-99) mg/dL POC Glucose (mg/dL) 131 H 179 H (75-99) mg/dL Calcium (8.4-10.2) mg/dL 07/15/16 07/15/16 07/15/16 Range/Units 05:57 05:57 06:34 Lymphocytes # (Manual) (1.0-4.8) k/uL PT 15.9 H (9.0-12.0) sec Sodium 153 H (137-145) mmol/L Potassium 3.0 L* (3.5-5.1) mmol/L Chloride 95 L (98-107) mmol/L Carbon Dioxide 49 H* (22-30) mmol/L BUN 43 H (7-17) mg/dL Glucose 155 H (74-99) mg/dL POC Glucose (mg/dL) 181 H (75-99) mg/dL Calcium 8.2 L (8.4-10.2) mg/dL 07/15/16 Range/Units 12:03 Lymphocytes # (Manual) (1.0-4.8) k/uL PT (9.0-12.0) sec Sodium (137-145) mmol/L Potassium (3.5-5.1) mmol/L Chloride (98-107) mmol/L Carbon Dioxide (22-30) mmol/L BUN (7-17) mg/dL Glucose (74-99) mg/dL POC Glucose (mg/dL) 183 H (75-99) mg/dL Calcium (8.4-10.2) mg/dL Assessment and Plan Plan: Impression: #1 Acute exacerbation of combined systolic and diastolic congestive heart failure. Echocardiogram reveals severely impaired left ventricular systolic function with estimated ejection fraction 20-25%. Moderate pulmonary hypertension. #2 Significant left lung consolidation. There is large left upper and left lower lobe consolidation suspicious for pneumonia. There is a mild infiltrate in the posterior medial right lung base also compatible with pneumonia. #3 Acute hypoxic respiratory failure secondary to above. #4 Troponin leak. #5 Dementia. #6 CVA/TIA, history of #7 History of pulmonary embolism, anticoagulated with warfarin. #8 History of depression. Plan: The patient was seen and evaluated by Dr. Peng. Her chest x-ray, and labs were all reviewed. Patient has significant change in her LV function compared to previous. Clearly an exacerbation of congestive heart failure and possible myocardial infarction. We'll continue to diurese the patient. The patient is a lifelong nonsmoker, doubt COPD. She does remain on bronchodilators 4 times a day and when necessary along with Pulmicort and Perforomist inhalations twice a day, continue Singulair, continue steroids, continue empiric antibiotics in the form of Levaquin and Zosyn. Her overall prognosis remains quite guarded at this point. She is a DO NOT RESUSCITATE/DO NOT INTUBATE CODE STATUS. If her chest x-ray continues to improve and she is able to get her O2 requirements down to 50 or 60% we may consider bronchoscopy with BAL and possible biopsy. We will switch her to the [employer] machine and can continue with 25 L of high flow nasal cannula in place at the [facility]. We will continue to follow.
[2016-07-15] MEDS: DEXTROSE 5% IN WATER 1,000 ML with POTASSIUM CHLORIDE 40 MEQ IV ONE ×2 (16:54→17:25)
[2016-07-15 16:57] LABS: Glucose,Whole Blood 168 mg/dL (75-99)
[2016-07-15 21:02] LABS: Glucose,Whole Blood 215 mg/dL (75-99)
[2016-07-15] MEDS: FLUTICASONE 50MCG/SPRAY NASAL 16GM EA NOSTRIL SCH (22:17)
[2016-07-15] MEDS: LEVOFLOXACIN 500 MG TAB PO SCH (22:17)
[2016-07-15] MEDS: MULTIVITAMINS, THERA 1 EACH TAB PO SCH (22:18)
[2016-07-15] MEDS: QUEtiapine 25 MG TAB PO SCH (22:18)
[2016-07-15 22:52] LABS: Blood Urea Nitrogen 41 mg/dL (7-17); Calcium 7.9 mg/dL (8.4-10.2); Chloride 90 mmol/L (98-107); Glucose 191 mg/dL (74-99); Non-African American GFR(MDRD) >60 (>60 ml/min/1.73 sqM); Sodium 143 mmol/L (137-145)
[2016-07-15 22:59] LABS: Anion Gap 7 mmol/L
[2016-07-15 23:04] LABS: Carbon Dioxide 46 mmol/L (22-30)
[2016-07-16] MEDS: PIPERACILLIN-TAZOBACTAM 3.375 GM in DEXTROSE/WATER 1 50ML.BAG IVPB SCH ×3 (00:16→15:57)
[2016-07-16] MEDS: methylPREDNISolone SOD SUCCI 125 MG/2 ML VIAL IV SCH ×4 (00:16→17:12)
[2016-07-16] MEDS: POTASSIUM CHLORIDE ER 20 MEQ TAB.ER PO SCH ×3 (00:16→03:30)
[2016-07-16] MEDS: ARTIFICIAL TEARS-HYPROMELLOSE DROPS 15 ML BTL BOTH EYES SCH ×3 (03:29→13:39)
[2016-07-16 06:24] LABS: Glucose,Whole Blood 132 mg/dL (75-99)
[2016-07-16] MEDS: CARVEDILOL 3.125 MG TAB PO SCH ×3 (06:34→17:12)
[2016-07-16] MEDS: guaiFENesin 600 MG TABLET.ER PO SCH ×2 (08:10→21:31)
[2016-07-16] MEDS: ASPIRIN 325 MG TAB PO SCH (08:10)
[2016-07-16] MEDS: NITROGLYCERIN OINT 1 INCH/GM PACKET TOPICAL SCH ×4 (08:10→21:31)
[2016-07-16] MEDS: MONTELUKAST 10 MG TAB PO SCH (08:10)
[2016-07-16] MEDS: amLODIPine 5 MG TAB PO SCH (08:10)
[2016-07-16] MEDS: ESCITALOPRAM 20 MG TAB PO SCH (08:10)
[2016-07-16] MEDS: SODIUM CHLORIDE 0.65% NASAL SPRAY 44 ML BTL NASAL SCH ×2 (08:10→21:32)
[2016-07-16] MEDS: PANTOPRAZOLE 40 MG TABLET PO SCH (08:10)
[2016-07-16] MEDS: INSULIN LISPRO (humaLOG) 300 UNIT/3 ML VIAL SQ SCH ×4 (08:11→21:32)
[2016-07-16] MEDS: LISINOPRIL 2.5 MG TAB PO SCH (08:11)
[2016-07-16 08:12] LABS: Basophils % (A) 0 %; CH 27.2; CHCM 29.8; Eosinophils % (A) 0 %; HCT 42.8 % (34.0-46.0); HDW 2.59; HGB 13.4 gm/dL (11.4-16.0); Hypochromasia Marked; Luc # (Auto) 0.18; Luc % (Auto) 3; Lymphocytes # (A) 0.7 k/uL (1.0-4.8); Lymphocytes % (A) 10 %; MCH 28.6 pg (25.0-35.0); MCHC 31.2 g/dL (31.0-37.0); MCV 91.8 fL (80.0-100.0); Mean Platelet Volume 7.5; Monocytes # (A) 0.3 k/uL (0-1.0); Monocytes % (A) 5 %; Neutrophils # (A) 5.3 k/uL (1.3-7.7); Neutrophils % (A) 82 %; RBC 4.66 m/uL (3.80-5.40); RDW 14.1 % (11.5-15.5); WBC 6.5 k/uL (3.8-10.6); WBC (Perox) 6.83
[2016-07-16 08:16] LABS: ALT 62 U/L (9-52); AST 81 U/L (14-36); Alkaline Phosphatase 34 U/L (38-126); Blood Urea Nitrogen 37 mg/dL (7-17); Chloride 92 mmol/L (98-107); Glucose 141 mg/dL (74-99); Non-African American GFR(MDRD) >60 (>60 ml/min/1.73 sqM); Potassium 3.6 mmol/L (3.5-5.1); Sodium 145 mmol/L (137-145); Total Protein 6.3 g/dL (6.3-8.2)
[2016-07-16] MEDS: DOCUSATE 100 MG CAP PO SCH (08:20)
[2016-07-16] MEDS: FORMOTEROL FUMARATE 20 MCG/2 ML NEBU INHALATION SCH ×2 (08:22→20:01)
[2016-07-16] MEDS: IPRATROPIUM-ALBUTEROL 3 ML NEB INHALATION SCH ×4 (08:22→20:03)
[2016-07-16] MEDS: BUDESONIDE 1 MG/2 ML NEBU INHALATION SCH ×2 (08:22→20:01)
[2016-07-16 08:23] LABS: Anion Gap 6 mmol/L
[2016-07-16 08:25] LABS: Carbon Dioxide 47 mmol/L (22-30)
[2016-07-16 11:48] LABS: Glucose,Whole Blood 296 mg/dL (75-99)
[2016-07-16] MEDS: DEXTROSE 5%-0.9% NACL 1,000 ML IV SCH (12:08)
--- NOTE | 2016-07-16 16:49 | PN ---
The patient is a pleasant 76-year-old female, resident of [facility], came in for hypoxic respiratory failure, multifactorial in nature and patient is being treated for COPD exacerbation, congestive heart failure exacerbation, chronic systolic dysfunction with an ejection fraction of around 20 to 25% along with bilateral pneumonia and patient is on broad spectrum antibiotics inhalation treatments. Patient Karnofsky score is extremely poor. Patient is mostly wheelchair bound. Poor functionality and multiple chronic medical problems as mentioned above. Considering all these things, I had an extensive discussion with the family regarding comfort care or Hospice and we will get a onsite case manager to evaluate for appropriate disposition if they decide on hospice or comfort care. Patient is definitely palliative care appropriate at this time because of the above mentioned reasons. REVIEW OF SYSTEMS: CARDIOVASCULAR: No chest pain, no orthopnea, no PND, no palpitations. PULMONARY: improved shortness of breath. Patient continues to be on high-flow nasal cannula oxygen. GASTROINTESTINAL: No diarrhea, nausea or vomiting. No abdominal pain. Normoactive bowel sounds. NEUROLOGIC: No headaches, no weakness, no numbness. Medications were reviewed. PHYSICAL EXAMINATION: VITAL SIGNS: Temperature 96.2, pulse of 68, respiratory rate of 18, blood pressure is 136/98, saturating at 91% on 25 liters of high flow nasal cannula oxygen. GENERAL: Obese. Alert, and unable to completely assess orientation because of hearing problems. The patient appears to be around 2 to 3, oriented around 2 to 3. HEENT: Pupils are round and equally reacting to light. EOMI. No scleral icterus. No conjunctival pallor. Normocephalic, atraumatic. No pharyngeal erythema. No thyromegaly. CARDIOVASCULAR: S1 and S2 present. No murmurs, rubs, or gallops. PULMONARY: Significantly decreased air entry into bilateral lung michael with significant expiratory wheezing. ABDOMEN: Soft, nontender, nondistended, normoactive bowel sounds. No palpable organomegaly. MUSCULOSKELETAL: No joint swelling or deformity. EXTREMITIES: No cyanosis, clubbing, or pedal edema. NEUROLOGICAL: Gross neurological examination did not reveal any focal deficits. SKIN: No rashes. LABORATORY DATA: CBC, CMP are abnormal for elevated, bicarbonate of 47 secondary to contraction alkalosis and chronic CO2 retention, potassium of 3.6. AST and ALT are minimally elevated and this is a nonspecific elevation or secondary to hepatic congestion. ASSESSMENT AND PLAN: 1. Acute hypoxic respiratory failure secondary to congestive heart failure exacerbation both severe systolic as well as diastolic heart failure, ejection fraction of around 25%, bilateral lung consolidations into bilateral pneumonia. Patient is being treated like health care associated pneumonia with Zosyn, levofloxacin and sputum cultures are not available at this point of time. 2. Mildly elevated troponin secondary to demand ischemia. 3. Dementia, mild to moderate. 4. Hearing problems. 5. Congestive heart failure, chronic systolic dysfunction as mentioned above. 6. Patient is wheezing, may have asthma or chronic obstructive pulmonary disease and patient oxygen dependent uses about 3 L as an outpatient. 7. Depression. 8. Obesity. PLAN: As mentioned in interval history. Continue with broad spectrum antibiotics, inhalational treatments. Oxygen support. Taper off oxygen as tolerated.
[2016-07-16 17:09] LABS: Glucose,Whole Blood 199 mg/dL (75-99)
--- NOTE | 2016-07-16 17:45 | P.PN ---
Subjective This is a 76-year-old female patient who resides in [facility]. She is followed by Dr. Shelley. She has a history of diastolic congestive heart failure, asthma, CVA/TIA, dementia, depression. She was here approximately one year ago for pulmonary embolism and is maintained on warfarin. The patient herself is a poor historian. She presented here from the [facility] by EMS after being found to be quite short of breath and having some altered mental status. Her oxygen saturation at that time is about 50%. Once here she was placed on BiPAP to maintain O2 saturations in the 90s. She is seen today on the selective care unit and consultation. Her chest x-ray does reveal a moderate to large left pleural effusion. ProBNP 29,500. Troponin 0.352. Currently INR 3.1 no leukocytosis. No anemia. She is afebrile. The patient is seen again today 07/14/2016 in follow-up on the selective care unit. She remains mainly on BiPAP to maintain O2 saturations in the 90s. Follow-up chest x-ray today did reveal actual improvement in the left lung consolidation. She would benefit from a bronchoscopy however she is still requiring 100% FiO2 which would make this quite risky at this point. She is alert and denies any worsening shortness of breath. She has a dry nonproductive cough. Blood and urine cultures revealed no growth. No leukocytosis. She is afebrile. The patient is seen again today in follow-up on 07/15/2016 on the selective care unit. She is more awake and alert today as compared to yesterday. She is doing better on 10 L of high flow nasal cannula while maintaining O2 saturations in the low 90s. She is able to tolerate longer periods of time off the BiPAP. Her chest x-ray does continue to show consolidation in left lung base no worse than yesterday. The patient is seen again today from 07/16/2016 in follow-up. She is currently maintaining good O2 saturations in the 90s on the airflow high flow oxygen device. She remains alert. She is taking honey thick liquids with assistance and tolerating that well. Objective - Vital Signs Vital signs: Vital Signs Temp 97.5 F L 07/16/16 15:57 Pulse 72 07/16/16 16:54 Resp 20 07/16/16 15:57 BP 118/74 07/16/16 15:57 Pulse Ox 89 L 07/16/16 15:57 Intake & Output 07/15/16 07/16/16 07/16/16 18:59 06:59 18:59 Intake Total 1050 392.5 Output Total 800 Balance 1050 -407.5 Weight 102 kg 99.5 kg Intake: IV 1050 50 Dextrose 5%-0.9% NaCl 1, 800 000 ml @ 60 mls/hr IV . [id number] LOLITA Rx#:[id number] Piperacillin-Tazobactam 3 50 50 .375 gm In Dextrose/Water 1 50ml.bag @ 12.5 mls/hr IVPB Q8HR [facility] Rx#: [id number] Potassium Chloride 10 meq 200 Lidocaine 2% Inj 10 mg In Sodium Chloride 0.9% 100 ml @ 100 mls/hr IV Q1HR [facility] Rx#:[id number] Intake, IV Titration 12.5 Amount Piperacillin-Tazobactam 3 12.5 .375 gm In Dextrose/Water 1 50ml.bag @ 12.5 mls/hr IVPB Q8HR [facility] Rx#: [id number] Oral 330 Output: Urine 800 Straight 800 Other: Voiding Method Diaper Diaper Diaper Incontinent Incontinent Incontinent # Voids 4 1 1 # Bowel Movements 0 - Exam GENERAL EXAM: Alert, fairly comfortable in no apparent distress. HEAD: Normocephalic. EYES: Normal reaction of pupils, equal size. NOSE: Clear with pink turbinates. THROAT: No erythema or exudates. NECK: No masses, no JVD. CHEST: No chest wall deformity. LUNGS: Equal air entry with rhonchi and crackles to left lung CVS: S1 and S2 normal with no audible mumurs, regular rhythm. ABDOMEN: No hepatosplenomegaly, normal bowel sounds, no guarding or rigidity. Extremities: There is trace peripheral edema. No clubbing, no cyanosis. Peripheral pulses are intact. - Labs CBC & Chem 7: 07/16/16 07:14 07/16/16 07:14 Labs: Abnormal Lab Results - Last 24 Hours (Table) 07/15/16 07/15/16 07/15/16 Range/Units 18:28 21:00 22:06 Lymphocytes # (1.0-4.8) k/uL Potassium 3.0 L* 3.0 L* (3.5-5.1) mmol/L Chloride 90 L (98-107) mmol/L Carbon Dioxide 46 H* (22-30) mmol/L BUN 41 H (7-17) mg/dL Glucose 191 H (74-99) mg/dL POC Glucose (mg/dL) 215 H (75-99) mg/dL Calcium 7.9 L (8.4-10.2) mg/dL AST (14-36) U/L ALT (9-52) U/L Alkaline Phosphatase (38-126) U/L Albumin (3.5-5.0) g/dL 07/16/16 07/16/16 07/16/16 Range/Units 06:22 07:14 07:14 Lymphocytes # 0.7 L (1.0-4.8) k/uL Potassium (3.5-5.1) mmol/L Chloride 92 L (98-107) mmol/L Carbon Dioxide 47 H* (22-30) mmol/L BUN 37 H (7-17) mg/dL Glucose 141 H (74-99) mg/dL POC Glucose (mg/dL) 132 H (75-99) mg/dL Calcium 8.0 L (8.4-10.2) mg/dL AST 81 H (14-36) U/L ALT 62 H (9-52) U/L Alkaline Phosphatase 34 L (38-126) U/L Albumin 3.1 L (3.5-5.0) g/dL 07/16/16 07/16/16 Range/Units 11:45 17:08 Lymphocytes # (1.0-4.8) k/uL Potassium (3.5-5.1) mmol/L Chloride (98-107) mmol/L Carbon Dioxide (22-30) mmol/L BUN (7-17) mg/dL Glucose (74-99) mg/dL POC Glucose (mg/dL) 296 H 199 H (75-99) mg/dL Calcium (8.4-10.2) mg/dL AST (14-36) U/L ALT (9-52) U/L Alkaline Phosphatase (38-126) U/L Albumin (3.5-5.0) g/dL Assessment and Plan Plan: Impression: #1 Acute exacerbation of combined systolic and diastolic congestive heart failure. Echocardiogram reveals severely impaired left ventricular systolic function with estimated ejection fraction 20-25%. Moderate pulmonary hypertension. #2 Significant left lung consolidation. There is large left upper and left lower lobe consolidation suspicious for pneumonia. There is a mild infiltrate in the posterior medial right lung base also compatible with pneumonia. #3 Acute hypoxic respiratory failure secondary to above. #4 Troponin leak. #5 Dementia. #6 CVA/TIA, history of #7 History of pulmonary embolism, anticoagulated with warfarin. #8 History of depression. Plan: The patient was seen and evaluated by Dr. Peng. Her chest x-ray, and labs were all reviewed. She does remain on bronchodilators 4 times a day and when necessary along with Pulmicort and Perforomist inhalations twice a day, continue Singulair, continue steroids, continue empiric antibiotics in the form of Levaquin and Zosyn. We'll continue with the AirVo high flow oxygen supplementation. Will continue with aspiration precautions. We'll repeat her chest x-ray in the a.m. Her overall prognosis remains quite guarded at this point. We've asked the staff to get her up in the chair. She is a DO NOT RESUSCITATE/DO NOT INTUBATE CODE STATUS. We will continue to follow.
[2016-07-16 21:00] LABS: Glucose,Whole Blood 173 mg/dL (75-99)
[2016-07-16] MEDS: LEVOFLOXACIN 500 MG TAB PO SCH (21:31)
[2016-07-16] MEDS: MULTIVITAMINS, THERA 1 EACH TAB PO SCH (21:31)
[2016-07-16] MEDS: FLUTICASONE 50MCG/SPRAY NASAL 16GM EA NOSTRIL SCH (21:32)
[2016-07-16] MEDS: QUEtiapine 25 MG TAB PO SCH (21:33)
[2016-07-17] MEDS: PIPERACILLIN-TAZOBACTAM 3.375 GM in DEXTROSE/WATER 1 50ML.BAG IVPB SCH ×4 (00:20→23:10)
[2016-07-17] MEDS: ARTIFICIAL TEARS-HYPROMELLOSE DROPS 15 ML BTL BOTH EYES SCH ×5 (00:20→21:29)
[2016-07-17] MEDS: methylPREDNISolone SOD SUCCI 125 MG/2 ML VIAL IV SCH ×5 (00:21→23:10)
[2016-07-17 06:30] LABS: Glucose,Whole Blood 164 mg/dL (75-99)
[2016-07-17] MEDS: CARVEDILOL 3.125 MG TAB PO SCH ×2 (07:34→16:52)
[2016-07-17] MEDS: INSULIN LISPRO (humaLOG) 300 UNIT/3 ML VIAL SQ SCH ×4 (07:35→21:29)
[2016-07-17] MEDS: IPRATROPIUM-ALBUTEROL 3 ML NEB INHALATION SCH ×4 (07:57→19:21)
[2016-07-17] MEDS: BUDESONIDE 1 MG/2 ML NEBU INHALATION SCH ×2 (07:58→19:21)
[2016-07-17] MEDS: FORMOTEROL FUMARATE 20 MCG/2 ML NEBU INHALATION SCH ×2 (07:58→19:21)
[2016-07-17] MEDS: NITROGLYCERIN OINT 1 INCH/GM PACKET TOPICAL SCH ×4 (09:12→21:28)
[2016-07-17] MEDS: ASPIRIN 325 MG TAB PO SCH (09:12)
[2016-07-17] MEDS: SODIUM CHLORIDE 0.65% NASAL SPRAY 44 ML BTL NASAL SCH ×2 (09:12→21:29)
[2016-07-17] MEDS: ESCITALOPRAM 20 MG TAB PO SCH (09:13)
[2016-07-17] MEDS: PANTOPRAZOLE 40 MG TABLET PO SCH (09:13)
[2016-07-17] MEDS: LISINOPRIL 2.5 MG TAB PO SCH (09:13)
[2016-07-17] MEDS: guaiFENesin 600 MG TABLET.ER PO SCH ×2 (09:13→21:29)
[2016-07-17] MEDS: DOCUSATE 100 MG CAP PO SCH (09:13)
[2016-07-17] MEDS: amLODIPine 5 MG TAB PO SCH (09:13)
[2016-07-17] MEDS: MONTELUKAST 10 MG TAB PO SCH (09:14)
[2016-07-17] MEDS: DEXTROSE 5%-0.9% NACL 1,000 ML IV SCH (09:22)
[2016-07-17 11:36] LABS: Glucose,Whole Blood 270 mg/dL (75-99)
[2016-07-17 11:38] VITALS: BMI 43.5
--- NOTE | 2016-07-17 13:28 | P.PN ---
Subjective This is a 76-year-old female patient who resides in [facility]. She is followed by Dr. Shelley. She has a history of diastolic congestive heart failure, asthma, CVA/TIA, dementia, depression. She was here approximately one year ago for pulmonary embolism and is maintained on warfarin. The patient herself is a poor historian. She presented here from the [facility] by EMS after being found to be quite short of breath and having some altered mental status. Her oxygen saturation at that time is about 50%. Once here she was placed on BiPAP to maintain O2 saturations in the 90s. She is seen today on the selective care unit and consultation. Her chest x-ray does reveal a moderate to large left pleural effusion. ProBNP 29,500. Troponin 0.352. Currently INR 3.1 no leukocytosis. No anemia. She is afebrile. The patient is seen again today 07/14/2016 in follow-up on the selective care unit. She remains mainly on BiPAP to maintain O2 saturations in the 90s. Follow-up chest x-ray today did reveal actual improvement in the left lung consolidation. She would benefit from a bronchoscopy however she is still requiring 100% FiO2 which would make this quite risky at this point. She is alert and denies any worsening shortness of breath. She has a dry nonproductive cough. Blood and urine cultures revealed no growth. No leukocytosis. She is afebrile. The patient is seen again today in follow-up on 07/15/2016 on the selective care unit. She is more awake and alert today as compared to yesterday. She is doing better on 10 L of high flow nasal cannula while maintaining O2 saturations in the low 90s. She is able to tolerate longer periods of time off the BiPAP. Her chest x-ray does continue to show consolidation in left lung base no worse than yesterday. The patient is seen again today from 07/16/2016 in follow-up. She is currently maintaining good O2 saturations in the 90s on the airflow high flow oxygen device. She remains alert. She is taking honey thick liquids with assistance and tolerating that well. The patient is seen again today in follow-up on 07/17/2016. She is currently awake and alert. She denies any worsening shortness of breath. She has a loose nonproductive cough. Her chest x-ray does show improvement in aeration in the left lung. Her oxygen requirements are improving as well. We are titrating down the AirVpo we may be able to transition her back to high flow nasal cannula. Objective - Vital Signs Vital signs: Vital Signs Temp 97.1 F L 07/17/16 11:27 Pulse 68 07/17/16 12:55 Resp 20 07/17/16 12:37 BP 107/65 07/17/16 11:27 Pulse Ox 91 L 07/17/16 11:27 Intake & Output 07/16/16 07/17/16 07/17/16 18:59 06:59 18:59 Intake Total 510.5 150 636 Output Total 800 1750 Balance -289.5 150 -1114 Weight 104.5 kg 104.5 kg Intake: IV 50 150 400 Dextrose 5%-0.9% NaCl 1, 150 400 000 ml @ 50 mls/hr IV . Q20H [facility] Rx#:[id number] Piperacillin-Tazobactam 3 50 .375 gm In Dextrose/Water 1 50ml.bag @ 12.5 mls/hr IVPB Q8HR [facility] Rx#: [id number] Intake, IV Titration 12.5 Amount Piperacillin-Tazobactam 3 12.5 .375 gm In Dextrose/Water 1 50ml.bag @ 12.5 mls/hr IVPB Q8HR [facility] Rx#: [id number] Oral 448 236 Output: Urine 800 1750 Straight 800 800 Uretheral (Meraz) 950 Other: Voiding Method Diaper Indwelling Catheter Indwelling Catheter Incontinent # Voids 1 - Exam GENERAL EXAM: Alert, fairly comfortable in no apparent distress. HEAD: Normocephalic. EYES: Normal reaction of pupils, equal size. NOSE: Clear with pink turbinates. THROAT: No erythema or exudates. NECK: No masses, no JVD. CHEST: No chest wall deformity. LUNGS: Equal air entry with rhonchi and crackles to left lung CVS: S1 and S2 normal with no audible mumurs, regular rhythm. ABDOMEN: No hepatosplenomegaly, normal bowel sounds, no guarding or rigidity. Extremities: There is trace peripheral edema. No clubbing, no cyanosis. Peripheral pulses are intact. - Labs CBC & Chem 7: 07/16/16 07:14 07/16/16 07:14 Labs: Abnormal Lab Results - Last 24 Hours (Table) 07/16/16 07/16/16 07/17/16 Range/Units 17:08 20:59 06:29 POC Glucose (mg/dL) 199 H 173 H 164 H (75-99) mg/dL 07/17/16 Range/Units 11:34 POC Glucose (mg/dL) 270 H (75-99) mg/dL Assessment and Plan Plan: Impression: #1 Acute exacerbation of combined systolic and diastolic congestive heart failure. Echocardiogram reveals severely impaired left ventricular systolic function with estimated ejection fraction 20-25%. Moderate pulmonary hypertension. #2 Significant left lung consolidation. There is large left upper and left lower lobe consolidation suspicious for pneumonia. There is a mild infiltrate in the posterior medial right lung base also compatible with pneumonia. #3 Acute hypoxic respiratory failure secondary to above. #4 Troponin leak. #5 Dementia. #6 CVA/TIA, history of #7 History of pulmonary embolism, anticoagulated with warfarin. #8 History of depression. Plan: The patient was seen and evaluated by Dr. Peng. Her chest x-ray was reviewed. We'll continue with the AirVo high flow oxygen supplementation. Will continue with aspiration precautions. Her overall prognosis remains quite guarded at this point. We've asked the staff to get her up in the chair if possible. She is a DO NOT RESUSCITATE/DO NOT INTUBATE CODE STATUS. We will continue to follow.
--- NOTE | 2016-07-17 15:30 | PN ---
A 76-year-old admitted secondary to multiple medical problems and considering her multiple medical issues, I consulted Hospice yesterday who will evaluate the patient today. Patient has minimal improvement in her respiratory status. REVIEW OF SYSTEMS: Unable to obtain due to her hearing issue. Medications are reviewed. PHYSICAL EXAMINATION: Temperature 97.4, pulse of 106, respiratory rate of 20, blood pressure is 107/65. Saturating at 91% on room air. GENERAL EXAMINATION: Patient is alert, unable to assess orientation, appears to be oriented well, probably 2 to 3. LUNG EXAMINATION: Decreased air entry into bilateral lung michael. No crackles were appreciated. Minimal expiratory wheezing was appreciated. NEUROLOGICAL: No new focal neurological deficits were appreciated. HEENT: Pupils are round and equally reacting to light. EOMI. No scleral icterus. No conjunctival pallor. Normocephalic, atraumatic. No pharyngeal erythema. No thyromegaly. CARDIOVASCULAR: S1 and S2 present. No murmurs, rubs, or gallops. ABDOMEN: Soft, nontender, nondistended, normoactive bowel sounds. No palpable organomegaly. MUSCULOSKELETAL: No joint swelling or deformity. EXTREMITIES: No cyanosis, clubbing, or pedal edema. SKIN: No rashes. LABORATORY DATA: Patient's bicarbonate has gone up and BUN and creatinine are essentially fairly stable. The potassium improved. ASSESSMENT AND PLAN: 1. Acute hypoxic respiratory failure secondary to congestive heart failure with chronic systolic dysfunction with acute exacerbation and patient probably has bilateral consolidation with pneumonia and sepsis secondary to that. Patient is being treated as healthcare-associated pneumonia with Zosyn and levofloxacin. Sputum cultures are not available at this time. 2. Elevated troponin secondary to demand ischemia from possible pneumonia. 3. Dementia, mild to moderate. 4. Hearing problems. 5. Congestive heart failure with chronic systolic dysfunction, ejection fraction of around 25%. 6. Mild asthma, chronic obstructive pulmonary disease exacerbation for which patient will be continued on systemic steroids and inhalational treatment. Patient remains on high-flow nasal cannula oxygen, patient is on about 35 L of oxygen. 7. Depression. 8. Obesity. PLAN: As mentioned above. Hospice will evaluate the patient. Until then, will continue the present medications. Continue with respiratory support, supportive care. Patient's overall prognosis is extremely poor.
--- NOTE | 2016-07-17 16:01 | XR ---
EXAMINATION TYPE: XR chest 1V DATE OF EXAM: 07/17/2016 11:35 AM COMPARISON: 07/15/2016 HISTORY: 76 year-old female left lung pneumonia/atelectasis TECHNIQUE: Single frontal view of the chest is obtained. FINDINGS: Low lung volumes. Left heart margin obscured by adjacent pleural-parenchymal disease. Right lung and pleural space appear relatively clear. Consent continued moderate opacification at the left base exte nding up to the mid lung level. IMPRESSION: Stable left mid and lower lung opacity obscuring the heart margin and hemidiaphragm. Correlate for un derlying effusion and extensive consolidation/atelectasis. Follow-up after treatment to ensure cleara nce.
[2016-07-17 16:41] LABS: Glucose,Whole Blood 187 mg/dL (75-99)
[2016-07-17 20:24] LABS: Glucose,Whole Blood 243 mg/dL (75-99)
[2016-07-17] MEDS: MULTIVITAMINS, THERA 1 EACH TAB PO SCH (21:28)
[2016-07-17] MEDS: LEVOFLOXACIN 500 MG TAB PO SCH (21:28)
[2016-07-17] MEDS: QUEtiapine 25 MG TAB PO SCH (21:29)
[2016-07-17] MEDS: FLUTICASONE 50MCG/SPRAY NASAL 16GM EA NOSTRIL SCH (21:29)
[2016-07-18] MEDS: ARTIFICIAL TEARS-HYPROMELLOSE DROPS 15 ML BTL BOTH EYES SCH ×3 (01:15→15:06)
[2016-07-18] MEDS: DEXTROSE 5%-0.9% NACL 1,000 ML IV SCH (03:38)
[2016-07-18 05:49] LABS: Glucose,Whole Blood 166 mg/dL (75-99)
[2016-07-18] MEDS: CARVEDILOL 3.125 MG TAB PO SCH (06:50)
[2016-07-18] MEDS: INSULIN LISPRO (humaLOG) 300 UNIT/3 ML VIAL SQ SCH ×2 (06:50→12:16)
[2016-07-18] MEDS: methylPREDNISolone SOD SUCCI 125 MG/2 ML VIAL IV SCH ×2 (06:50→12:17)
[2016-07-18] MEDS: FORMOTEROL FUMARATE 20 MCG/2 ML NEBU INHALATION SCH (07:58)
[2016-07-18] MEDS: IPRATROPIUM-ALBUTEROL 3 ML NEB INHALATION SCH ×2 (07:58→12:24)
[2016-07-18] MEDS: BUDESONIDE 1 MG/2 ML NEBU INHALATION SCH (07:58)
[2016-07-18] MEDS: MONTELUKAST 10 MG TAB PO SCH (08:58)
[2016-07-18] MEDS: LISINOPRIL 2.5 MG TAB PO SCH (08:58)
[2016-07-18] MEDS: NITROGLYCERIN OINT 1 INCH/GM PACKET TOPICAL SCH ×2 (08:58→12:18)
[2016-07-18] MEDS: guaiFENesin 600 MG TABLET.ER PO SCH (08:59)
[2016-07-18] MEDS: ESCITALOPRAM 20 MG TAB PO SCH (08:59)
[2016-07-18] MEDS: SODIUM CHLORIDE 0.65% NASAL SPRAY 44 ML BTL NASAL SCH (08:59)
[2016-07-18] MEDS: DOCUSATE 100 MG CAP PO SCH (08:59)
[2016-07-18] MEDS: amLODIPine 5 MG TAB PO SCH (08:59)
[2016-07-18] MEDS: ASPIRIN 325 MG TAB PO SCH (08:59)
[2016-07-18] MEDS: PANTOPRAZOLE 40 MG TABLET PO SCH (08:59)
[2016-07-18] MEDS: PIPERACILLIN-TAZOBACTAM 3.375 GM in DEXTROSE/WATER 1 50ML.BAG IVPB SCH (09:03)
[2016-07-18 11:55] VITALS: RESP 18
[2016-07-18 11:57] LABS: Glucose,Whole Blood 191 mg/dL (75-99)
[2016-07-18 12:28] VITALS: BP 113/72; TEMP 97.1
[2016-07-18 12:29] VITALS: PULSE 62
--- NOTE | 2016-07-18 15:06 | DS ---
DATE OF ADMISSION: 07/10/2016 DATE OF DISCHARGE: Patient is a 76-year-old, has multiple medical problems and patient has a very poor Karnofsky score. Patient has 25% ejection fraction, congestive heart failure, chronic systolic dysfunction. Patient was admitted with acute hypoxic respiratory failure and patient has pneumonia. Patient was treated for that. Patient has advanced COPD as well. Patient's overall prognosis is extremely poor, because of which patient was made hospice and patient is on 15 L of oxygen. Will cut down the oxygen. Oxygen will be used only for comfort rather than treatment so I am not worried about saturations. Whatever level of oxygen makes her comfortable, to that level oxygen will be titrated and patient will be transferred to the facility where she came in from with hospice. Patient was seen and examined on the day of discharge. Vitals are stable. PHYSICAL EXAMINATION: LUNG EXAMINATION: Decreased air entry into bilateral lung michael. No crackles were appreciated. GENERAL: The patient is alert and oriented x3, not in any acute distress. Well developed, well nourished. HEENT: Pupils are round and equally reacting to light. EOMI. No scleral icterus. No conjunctival pallor. Normocephalic, atraumatic. No pharyngeal erythema. No thyromegaly. CARDIOVASCULAR: S1 and S2 present. No murmurs, rubs, or gallops. ABDOMEN: Soft, nontender, nondistended, normoactive bowel sounds. No palpable organomegaly. MUSCULOSKELETAL: No joint swelling or deformity. EXTREMITIES: No cyanosis, clubbing, or pedal edema. NEUROLOGICAL: Gross neurological examination did not reveal any focal deficits. SKIN: No rashes. The patient is obese significantly limited communication because of her advanced hearing problems. ASSESSMENT AND PLAN: 1. Acute hypoxic respiratory failure secondary to above mentioned reasons. 2. Elevated troponin secondary to demand ischemia. 3. Dementia, mild to moderate. 4. Hearing problems. 5. Congestive heart failure, chronic systolic dysfunction with ejection fraction of 25%. Patient was treated for that. 6. Chronic obstructive pulmonary disease with acute exacerbation. Patient continues to be on 15 L of oxygen at this point of time. 7. Depression. 8. Obesity. PLAN: Hospice. Patient will be transfer to facility with hospice and comfort medications will be continued. Patient is presently not in pain, is comfortable at this time.
--- NOTE | 2016-07-18 15:08 | DS ---
ADDENDUM: DATE OF ADMISSION: 07/10/2016 DATE OF DISCHARGE: DISCHARGE DIET: Regular. Activity as per the facility. Comfort medications and antidepressants can be continued. Spent greater than 35 minutes in total discharge process. Patient will follow up with the physician in the facility.
--- NOTE | 2016-07-18 15:56 | P.PN ---
Subjective This is a 76-year-old female patient who resides in [facility]. She is followed by Dr. Shelley. She has a history of diastolic congestive heart failure, asthma, CVA/TIA, dementia, depression. She was here approximately one year ago for pulmonary embolism and is maintained on warfarin. The patient herself is a poor historian. She presented here from the [facility] by EMS after being found to be quite short of breath and having some altered mental status. Her oxygen saturation at that time is about 50%. Once here she was placed on BiPAP to maintain O2 saturations in the 90s. She is seen today on the selective care unit and consultation. Her chest x-ray does reveal a moderate to large left pleural effusion. ProBNP 29,500. Troponin 0.352. Currently INR 3.1 no leukocytosis. No anemia. She is afebrile. The patient is seen again today 07/14/2016 in follow-up on the selective care unit. She remains mainly on BiPAP to maintain O2 saturations in the 90s. Follow-up chest x-ray today did reveal actual improvement in the left lung consolidation. She would benefit from a bronchoscopy however she is still requiring 100% FiO2 which would make this quite risky at this point. She is alert and denies any worsening shortness of breath. She has a dry nonproductive cough. Blood and urine cultures revealed no growth. No leukocytosis. She is afebrile. The patient is seen again today in follow-up on 07/15/2016 on the selective care unit. She is more awake and alert today as compared to yesterday. She is doing better on 10 L of high flow nasal cannula while maintaining O2 saturations in the low 90s. She is able to tolerate longer periods of time off the BiPAP. Her chest x-ray does continue to show consolidation in left lung base no worse than yesterday. The patient is seen again today from 07/16/2016 in follow-up. She is currently maintaining good O2 saturations in the 90s on the airflow high flow oxygen device. She remains alert. She is taking honey thick liquids with assistance and tolerating that well. The patient is seen again today in follow-up on 07/17/2016. She is currently awake and alert. She denies any worsening shortness of breath. She has a loose nonproductive cough. Her chest x-ray does show improvement in aeration in the left lung. Her oxygen requirements are improving as well. We are titrating down the AirVpo we may be able to transition her back to high flow nasal cannula. On 07/18/2016, the patient is alert and awake. The patient on high flow oxygen at 15 L/m nasal cannula to bring her saturation above 90-91%. The patient shows no signs of any respiratory distress. She is hard of hearing and hard to communicate with. She has her guardian at the bedside and based on her medical compliance and comorbidities, the patient will be transferred to hospice care. As mentioned earlier, she has advanced dementia, CHF with ejection fraction of 25%, COPD, depression, and an extensive left lung pneumonia causing significant consolidation volume loss of the left lung and the possibility of a left lung mass/lesion, to be think his problem is not completely excluded. No final diagnosis was established nontender the patient was in severe hypoxic respiratory failure and she was not a good candidate for bronchoscopy. Objective - Vital Signs Vital signs: Vital Signs Temp 97.1 F L 07/18/16 12:00 Pulse 62 07/18/16 12:30 Resp 18 07/18/16 12:00 BP 113/72 07/18/16 12:00 Pulse Ox 92 L 07/18/16 12:00 Intake & Output 07/17/16 07/18/16 07/18/16 18:59 06:59 18:59 Intake Total 1826 550 118 Output Total 2050 500 Balance -224 50 118 Weight 104.5 kg 104.6 kg Intake: IV 1000 500 Dextrose 5%-0.9% NaCl 1, 1000 500 000 ml @ 50 mls/hr IV . Q20H LOLITA Rx#:[id number] Intake, IV Titration 50 50 Amount Piperacillin-Tazobactam 3 50 50 .375 gm In Dextrose/Water 1 50ml.bag @ 12.5 mls/hr IVPB Q8HR LOLITA Rx#: [id number] Oral 776 0 118 Output: Urine 2050 500 Straight 800 Uretheral (Meraz) 1250 Other: Voiding Method Indwelling Catheter Indwelling Catheter Indwelling Catheter - Exam Head exam was generally normal. There was no scleral icterus or corneal arcus. Mucous membranes were moist. The patient is obese him a alert, awake,Neck was supple and without jugular venous distension, thyromegaly, or carotid bruits. Carotids were easily palpable bilaterally. There was no adenopathy. Lung sounds are diminished in the left compared to the right. Nearly absent in the left lung base.Cardiac exam revealed the PMI to be normally situated and sized. The rhythm was regular and no extrasystoles were noted during several minutes of auscultation. The first and second heart sounds were normal and physiologic splitting of the second heart sound was noted. There were no murmurs, rubs, clicks, or gallops. Abdomen is obese soft nontender. No organomegaly. No direct tenderness or rebound tensile guarding.Examination of the extremities revealed easily palpable radial, femoral and pedal pulses. There was no cyanosis , clubbing or edema. - Labs CBC & Chem 7: 07/16/16 07:14 07/16/16 07:14 Labs: Abnormal Lab Results - Last 24 Hours (Table) 07/17/16 07/17/16 07/18/16 Range/Units 16:38 20:23 05:47 POC Glucose (mg/dL) 187 H 243 H 166 H (75-99) mg/dL 07/18/16 Range/Units 11:55 POC Glucose (mg/dL) 191 H (75-99) mg/dL Assessment and Plan Plan: Impression: #1 Acute exacerbation of combined systolic and diastolic congestive heart failure. Echocardiogram reveals severely impaired left ventricular systolic function with estimated ejection fraction 20-25%. Moderate pulmonary hypertension. #2 Significant left lung consolidation. There is large left upper and left lower lobe consolidation suspicious for pneumonia. There is a mild infiltrate in the posterior medial right lung base also compatible with pneumonia. #3 Acute hypoxic respiratory failure secondary to above. #4 Troponin leak. #5 Dementia. #6 CVA/TIA, history of #7 History of pulmonary embolism, anticoagulated with warfarin. #8 History of depression. Plan The patient had limited improvement in her oxidation status. She still on high flow oxygen at 15 L/m nasal cannula. She has severe consolidation of the left lung and as mentioned earlier the possibilities are pneumonia, postobstructive pneumonia, malignancy of the left lung. Based on that, the patient will be transferred to hospice care. Advanced dementia base other comorbidities with make an acceptable candidate for hospice care. Family is agreeable and the guardian is the bedside.
== END 2016-07-18 18:33 | disposition hospice, inpatient (51) | DRG 291 ==
LOC: EC 13:20 → EEVIPCON 13:20 → 6SEL 15:57
PROVIDERS: ADMIT Hospitalist; ATTEND Hospitalist
DX: I11.0 Hypertensive heart disease with heart failure (principal); J96.21 Acute and chronic respiratory failure with hypoxia; J18.9 Pneumonia, unspecified organism; G93.41 Metabolic encephalopathy; D69.6 Thrombocytopenia, unspecified; I27.2 Other secondary pulmonary hypertension; J44.0 Chronic obstructive pulmonary disease with (acute) lower respiratory infection; I42.9 Cardiomyopathy, unspecified; I24.8 Other forms of acute ischemic heart disease; J45.901 Unspecified asthma with (acute) exacerbation; J44.1 Chronic obstructive pulmonary disease with (acute) exacerbation; I45.2 Bifascicular block; Z68.42 Body mass index [BMI] 45.0-49.9, adult; J98.11 Atelectasis; I69.354 Hemiplegia and hemiparesis following cerebral infarction affecting left non-dominant side; I50.23 Acute on chronic systolic (congestive) heart failure; Z99.81 Dependence on supplemental oxygen; E66.01 Morbid (severe) obesity due to excess calories; Z66 Do not resuscitate; Z51.5 Encounter for palliative care; I25.10 Atherosclerotic heart disease of native coronary artery without angina pectoris; G30.9 Alzheimer's disease, unspecified; T45.515A Adverse effect of anticoagulants, initial encounter; F02.80 Dementia in other diseases classified elsewhere, unspecified severity, without behavioral disturbance, psychotic disturbance, mood disturbance, and anxiety; R32 Unspecified urinary incontinence; R23.0 Cyanosis; R74.8 Abnormal levels of other serum enzymes; I45.10 Unspecified right bundle-branch block; E87.6 Hypokalemia; I48.91 Unspecified atrial fibrillation; H91.90 Unspecified hearing loss, unspecified ear; F31.9 Bipolar disorder, unspecified; I44.30 Unspecified atrioventricular block; Z85.43 Personal history of malignant neoplasm of ovary; Z86.14 Personal history of Methicillin resistant Staphylococcus aureus infection; Z90.49 Acquired absence of other specified parts of digestive tract; Z86.711 Personal history of pulmonary embolism; Z79.899 Other long term (current) drug therapy; Z71.3 Dietary counseling and surveillance; Z90.710 Acquired absence of both cervix and uterus; Z79.51 Long term (current) use of inhaled steroids; Z79.891 Long term (current) use of opiate analgesic; Z88.8 Allergy status to other drugs, medicaments and biological substances; Z88.2 Allergy status to sulfonamides; Z87.891 Personal history of nicotine dependence; Z79.01 Long term (current) use of anticoagulants; Z79.82 Long term (current) use of aspirin; Z82.49 Family history of ischemic heart disease and other diseases of the circulatory system; Y95 Nosocomial condition
CPT/HCPCS: 36415; 71010; 71250; 76604; 80048; 80053; 82550; 82553; 83036; 83880; 84132; 84484; 85025; 85610; 85730; 87040; 87086; 93005; 93306; 94640; 94660; 94667; 94760; 96374; 99291